=== PATIENT | female | born 1995 | race Caucasian/White ===

== ENCOUNTER → 2017-07-08 | Outpatient (CLI) | payer OTHER ==
[2016-11-21 11:04] VITALS: BMI 25.4
[~2017-07-08] MED LIST: LEVO1TAB75 PO; ONDA4TAB PO; PROM-110 PO; SULF-198 PO; [UNRECOGNIZED DRUG - CODE] MC
[2017-07-08 10:05] LABS: LDL CHOLESTEROL 108 mg/dl
== END ==
LOC: LAB 08:46
PROVIDERS: ATTEND Internal Medicine Endocrinology, Diabetes & Metabolism
DX: E10.65 Type 1 diabetes mellitus with hyperglycemia (principal)
CPT/HCPCS: 36415; 82040; 82043; 82247; 82310; 82374; 82435; 82465; 82565; 82947; 83718; 84075; 84132; 84155; 84295; 84436; 84443; 84450; 84460; 84478; 84479; 84520

== ENCOUNTER 2017-08-24 01:13 | Emergency (ER) | payer OTHER ==
[2016-11-21 11:04] VITALS: Ht 175.3 cm; Wt 62.6 kg
[~2017-08-24] VITALS: Ht 175.3 cm; Wt 62.6 kg
--- NOTE | 2017-08-24 01:15 | ER Report ---
History and Physical Time Seen By MD: 01:15 HPI/ROS CHIEF COMPLAINT: Vomiting, hyperglycemia HISTORY OF PRESENT ILLNESS: 22-year-old female, type I diabetic presents with vomiting for 12 hours. She's been able to eat anything. She is on insulin pump. She's been having low blood sugars. Patient has a history of chronic nausea and vomiting problems. Likely secondary to gastroparesis. REVIEW OF SYSTEMS: Respiratory: No cough, no dyspnea. Cardiovascular: No chest pain, no palpitations. Gastrointestinal: As above Musculoskeletal: No back pain. Allergies: Coded Allergies: No Known Drug Allergies (Verified , 08/24/17) Home Meds Active Scripts Promethazine Hcl (PROMETHAZINE HCL) 25 Mg Tablet, 25 MG PO Q4H Y for NAUSEA/ VOMITING, #20 TAB Prov:CARMEN HARRISON DO 08/24/17 Ondansetron (ZOFRAN ODT) 4 Mg Tab.rapdis, 4 MG PO every 6 hours Y for NAUSEA/ VOMITING, #15 TAB TAKE 1 TABLET BY MOUTH EVERY 12 HOURS Prov:CARMEN HARRISON DO 08/24/17 Reported Medications Citalopram Hydrobromide (CITALOPRAM HBR) 20 Mg Tablet, PO QDAY, #5 TAB 08/24/17 Levonorgestrel-Eth Estradiol (LEVORA-28) 1 Each Tablet, 1 EACH PO DAILY 05/04/16 Insulin Pump Syringe, 3 Ml (Insulin Pump [place]) 1 Each Each, 1 EACH MC, 0 Refills 06/01/11 Discontinued Scripts Ondansetron (ZOFRAN ODT) 4 Mg Tab.rapdis, 4 MG PO Q6H Y for NAUSEA/VOMITING, # 20 TAB.AVIVA 0 Refills Prov:CLARISSA GEIGER MD 06/16/17 Sulfamethoxazole/Trimet 800-160 Mg Tab (BACTRIM DS TABLET) 1 Each Tablet, 1 TAB PO Q12H, #10 TAB 0 Refills Prov:CLARISSA GEIGER MD 06/16/17 Reviewed Nurses Notes: Yes Old Medical Records Reviewed: Yes Hx Smoking: No Exposure to Second Hand Smoke?: No Hx Substance Use Disorder: No Hx Alcohol Use: No Constitutional Vital Sign - Last 24 Hours 08/24/17 08/24/17 08/24/17 08/24/17 01:21 01:30 01:31 02:00 Temp 97.8 Pulse 84 78 Resp 14 B/P (MAP) 122/87 (99) 122/87 114/73 (87) Pulse Ox 96 94 O2 Delivery Room Air 08/24/17 08/24/17 08/24/17 02:30 03:00 03:20 Pulse 68 70 Resp 14 14 B/P (MAP) 109/64 (79) 124/80 (95) 122/68 (86) Pulse Ox 97 96 O2 Delivery Room Air Room Air Physical Exam General Appearance: The patient is alert, has no immediate need for airway protection and no current signs of toxicity. Vital signs stable, afebrile, pulse ox normal HEENT: Pupils equal and round no injection. Oropharynx without redness or exudate Respiratory: Chest is non tender, lungs are clear to auscultation. Cardiac: regular rate and rhythm Gastrointestinal: Abdomen is soft, mild diffuse tenderness, no masses, bowel sounds normal. Musculoskeletal: Neck: Neck is supple and non tender. No lymphadenopathy Extremities have full range of motion and are non tender. Skin: No rashes or lesions. DIFFERENTIAL DIAGNOSIS: After history and physical exam differential diagnosis was considered for abdominal pain including but not limited to appendicitis, cholecystitis, gastroenteritis, gastroparesis, gastritis and urinary tract infection. Medical Decision Making Data Points Result Diagram: 08/24/17 0129 08/24/17 0129 Laboratory Hematology Test 08/24/17 01:19 08/24/17 01:21 08/24/17 01:29 Urine Color Yellow Urine Clarity Slightly-cloudy Urine pH 5.0 pH (4.8-9.5) Urine Specific [place] 1.030 Urine Protein Negative mg/dL (NEGATIVE) Urine Glucose (UA) Negative mg/dL (NEGATIVE) Urine Ketones Trace mg/dL (NEGATIVE) Urine Blood Negative (NEGATIVE) Urine Nitrite Negative (NEGATIVE) Urine Bilirubin Negative (NEGATIVE) Urine Urobilinogen Negative mg/dL (0.2-1.9) Urine Leukocyte Esterase Negative (NEGATIVE) Urine RBC None /HPF (0-2/HPF) Urine WBC 2 /HPF (0-5/HPF) Urine Squamous Epithelial Cells Many /LPF (</=FEW) Urine Bacteria Negative /HPF (NONE-FEW) Urine Mucus Few /HPF (NONE-FEW) Urine HCG, Qualitative Negative (NEGATIVE) Whole Blood Glucose 66 mg/DL (75-110) Red Blood Count 5.25 M/uL (4.17-5.56) Mean Corpuscular Volume 89.6 fL (80.0-96.0) Mean Corpuscular Hemoglobin 30.7 pg (26.0-33.0) Mean Corpuscular Hemoglobin Concent 34.2 g/dL (32.0-36.0) Red Cell Distribution Width 12.3 % (11.5-14.5) Mean Platelet Volume 8.6 fL (7.2-11.1) Neutrophils (%) (Auto) 71.5 % (39.4-72.5) Lymphocytes (%) (Auto) 19.4 % (17.6-49.6) Monocytes (%) (Auto) 8.4 % (4.1-12.4) Eosinophils (%) (Auto) 0.4 % (0.4-6.7) Basophils (%) (Auto) 0.3 % (0.3-1.4) Nucleated RBC Relative Count (auto) 0.0 /100WBC Neutrophils # (Auto) 8.7 K/uL (2.0-7.4) Lymphocytes # (Auto) 2.4 K/uL (1.3-3.6) Monocytes # (Auto) 1.0 K/uL (0.3-1.0) Eosinophils # (Auto) 0.1 K/uL (0.0-0.5) Basophils # (Auto) 0.0 K/uL (0.0-0.1) Nucleated RBC Absolute Count (auto) 0.00 K/uL Sodium Level 139 mmol/L (137-145) Potassium Level 3.5 mmol/L (3.5-5.0) Chloride Level 104 mmol/L (98-107) Carbon Dioxide Level 21 mmol/L (22-31) Blood Urea Nitrogen 10 mg/dl (7-18) Creatinine 0.80 mg/dl (0.52-1.04) Glomerular Filtration Rate Calc > 60.0 Random Glucose 61 mg/dl (75-110) Calcium Level 9.2 mg/dl (8.4-10.2) Total Bilirubin 0.4 mg/dl (0.2-1.3) Aspartate Amino Transf (AST/SGOT) 23 U/L (0-35) Alanine Aminotransferase (ALT/SGPT) 27 U/L (0-56) Alkaline Phosphatase 54 U/L (0-126) Total Protein 7.8 gm/dl (6.3-8.2) Albumin 4.3 g/dl (3.5-5.0) Amylase Level 91 U/L (0-110) Lipase 79 U/L (23-300) Chemistry Test 08/24/17 01:19 08/24/17 01:21 08/24/17 01:29 Urine Color Yellow Urine Clarity Slightly-cloudy Urine pH 5.0 pH (4.8-9.5) Urine Specific [place] 1.030 Urine Protein Negative mg/dL (NEGATIVE) Urine Glucose (UA) Negative mg/dL (NEGATIVE) Urine Ketones Trace mg/dL (NEGATIVE) Urine Blood Negative (NEGATIVE) Urine Nitrite Negative (NEGATIVE) Urine Bilirubin Negative (NEGATIVE) Urine Urobilinogen Negative mg/dL (0.2-1.9) Urine Leukocyte Esterase Negative (NEGATIVE) Urine RBC None /HPF (0-2/HPF) Urine WBC 2 /HPF (0-5/HPF) Urine Squamous Epithelial Cells Many /LPF (</=FEW) Urine Bacteria Negative /HPF (NONE-FEW) Urine Mucus Few /HPF (NONE-FEW) Urine HCG, Qualitative Negative (NEGATIVE) Whole Blood Glucose 66 mg/DL (75-110) White Blood Count 12.2 k/uL (4.5-11.0) Red Blood Count 5.25 M/uL (4.17-5.56) Hemoglobin 16.1 g/dL (12.0-16.0) Hematocrit 47.0 % (34.0-47.0) Mean Corpuscular Volume 89.6 fL (80.0-96.0) Mean Corpuscular Hemoglobin 30.7 pg (26.0-33.0) Mean Corpuscular Hemoglobin Concent 34.2 g/dL (32.0-36.0) Red Cell Distribution Width 12.3 % (11.5-14.5) Platelet Count 298 K/uL (150-450) Mean Platelet Volume 8.6 fL (7.2-11.1) Neutrophils (%) (Auto) 71.5 % (39.4-72.5) Lymphocytes (%) (Auto) 19.4 % (17.6-49.6) Monocytes (%) (Auto) 8.4 % (4.1-12.4) Eosinophils (%) (Auto) 0.4 % (0.4-6.7) Basophils (%) (Auto) 0.3 % (0.3-1.4) Nucleated RBC Relative Count (auto) 0.0 /100WBC Neutrophils # (Auto) 8.7 K/uL (2.0-7.4) Lymphocytes # (Auto) 2.4 K/uL (1.3-3.6) Monocytes # (Auto) 1.0 K/uL (0.3-1.0) Eosinophils # (Auto) 0.1 K/uL (0.0-0.5) Basophils # (Auto) 0.0 K/uL (0.0-0.1) Nucleated RBC Absolute Count (auto) 0.00 K/uL Glomerular Filtration Rate Calc > 60.0 Calcium Level 9.2 mg/dl (8.4-10.2) Total Bilirubin 0.4 mg/dl (0.2-1.3) Aspartate Amino Transf (AST/SGOT) 23 U/L (0-35) Alanine Aminotransferase (ALT/SGPT) 27 U/L (0-56) Alkaline Phosphatase 54 U/L (0-126) Total Protein 7.8 gm/dl (6.3-8.2) Albumin 4.3 g/dl (3.5-5.0) Amylase Level 91 U/L (0-110) Lipase 79 U/L (23-300) Urinalysis Test 08/24/17 01:19 Urine Color Yellow Urine Clarity Slightly-cloudy Urine pH 5.0 pH (4.8-9.5) Urine Specific [place] 1.030 Urine Protein Negative mg/dL (NEGATIVE) Urine Glucose (UA) Negative mg/dL (NEGATIVE) Urine Ketones Trace mg/dL (NEGATIVE) Urine Blood Negative (NEGATIVE) Urine Nitrite Negative (NEGATIVE) Urine Bilirubin Negative (NEGATIVE) Urine Urobilinogen Negative mg/dL (0.2-1.9) Urine Leukocyte Esterase Negative (NEGATIVE) Urine RBC None /HPF (0-2/HPF) Urine WBC 2 /HPF (0-5/HPF) Urine Squamous Epithelial Cells Many /LPF (</=FEW) Urine Bacteria Negative /HPF (NONE-FEW) Urine Mucus Few /HPF (NONE-FEW) Urine HCG, Qualitative Negative (NEGATIVE) ED Course/Re-evaluation Clinical Indication for ER IV: Hydration, IV Access ED Course Patient was admitted to an examination room. H&P was done. The differential diagnoses was considered. On clinical examination. Patient is a benign nonsurgical abdomen. She is treated with IV fluid., Zofran 8 mg, 1 L normal saline, Phenergan 12.5 mg. She is given dextrose 25 g IV. She feels much better. Glucose for her continuous monitoring is 126. Patient is tolerating by mouth apple juice. Patient be discharged home with oral Zofran and Phenergan. Decision to Disposition Date: Aug 24, 2017 Decision to Disposition Time: 02:02 Depart Departure Latest Vital Signs Vital Signs Date Time Temp Pulse Resp B/P (MAP) Pulse Ox O2 Delivery O2 Flow Rate FiO2 08/24/17 03:20 70 14 122/68 (86) 96 Room Air 08/24/17 01:31 97.8 Impression: Primary Impression: Nausea & vomiting Additional Impressions: Type 1 diabetes mellitus Hypoglycemia Condition: Improved Disposition: HOME OR SELF-CARE Referrals: ANNE GARCIA DO (PCP) New Scripts Promethazine Hcl (PROMETHAZINE HCL) 25 Mg Tablet 25 MG PO Q4H Y for NAUSEA/VOMITING, #20 TAB Prov: CARMEN HARRISON DO 08/24/17 Ondansetron (ZOFRAN ODT) 4 Mg Tab.rapdis 4 MG PO every 6 hours Y for NAUSEA/VOMITING, #15 TAB TAKE 1 TABLET BY MOUTH EVERY 12 HOURS Prov: CARMEN HARRISON DO 08/24/17 Patient Instructions: Acute Nausea and Vomiting (ED) Problem Qualifiers Primary Impression: Nausea & vomiting Vomiting type: unspecified Vomiting Intractability: intractable Qualified Codes: R11.2 - Nausea with vomiting, unspecified Additional Impressions: Type 1 diabetes mellitus Diabetes mellitus complication status: without complication Qualified Codes: E10.9 - Type 1 diabetes mellitus without complications CARMEN HARRISON DO Aug 24, 2017 01:15
[2017-08-24] MEDS ORDERED: NS(*) 0.9% 1000 ML BAG 1,000 ML IV ONE (01:22)
[2017-08-24] MEDS ORDERED: CITA-139 PO (01:23)
[2017-08-24] MEDS ORDERED: ONDANSETRON 4 MG/2 ML VIAL ONE (01:24)
[2017-08-24] MEDS ORDERED: ONDANSETRON 4 MG/2 ML VIAL IVP ONE (01:25)
[2017-08-24 01:48] LABS: PLATELET COUNT, AUTOMATED 298 K/uL (150-450)
[2017-08-24] MEDS ORDERED: DEXTROSE 50% 50 ML SYR IVP ONE (02:05)
[2017-08-24] MEDS ORDERED: PROMETHAZINE 25 MG/ML 1 ML AMP IVP ONE (02:25)
[2017-08-24] MEDS ORDERED: PROM-110 PO (02:51)
[2017-08-24] MEDS ORDERED: ONDA4TAB PO (02:51)
[2017-08-24] MEDS ORDERED: PROMETHAZINE HCL 25 MG TAB TH 2 TAB/BOTTLE PO ONE (03:15)
[2017-08-24] MEDS ORDERED: ONDANSETRON 4 MG ODT TH SL ONE (03:15)
[2017-08-24 03:20] VITALS: BP 122/68
== END 2017-08-24 03:33 | disposition home or self-care (01) ==
LOC: ER 01:14
DX: E10.649 Type 1 diabetes mellitus with hypoglycemia without coma (principal); R11.2 Nausea with vomiting, unspecified
CPT/HCPCS: 36416; 81001; 81025; 82150; 82948; 83690; 85025; 96374; 96375; 99284; J2405; J2550; J7030; S0119; 82040; 82247; 82310; 82374; 82435; 82565; 82947; 84075; 84132; 84155; 84295; 84450; 84460; 84520

== ENCOUNTER 2017-08-25 21:07 | Emergency (ER) | payer OTHER ==
[2016-11-21 11:04] VITALS: Wt 62.6 kg
[~2017-08-25 21:07] MED LIST changes: +CITA-139 PO
--- NOTE | 2017-08-25 21:18 | ER Report ---
History and Physical Time Seen By MD: 21:17 HPI/ROS CHIEF COMPLAINT: Vomiting HISTORY OF PRESENT ILLNESS: 22-year-old female, type I diabetic presents to the ER with continued vomiting today. She was seen here 3 days ago for vomiting. Patient has chronic nausea she gets waves of nausea and sometimes it develops and vomiting, which is uncontrollable. She's been admitted twice to the hospital before for intractable vomiting. She had gastric emptying studies, which showed normal function a year ago. She reports no fevers, no chills, no dysuria. Patient notes bandlike pain across her upper abdomen. REVIEW OF SYSTEMS: Respiratory: No cough, no dyspnea. Cardiovascular: No chest pain, no palpitations. Gastrointestinal: As above Musculoskeletal: No back pain. Allergies: Coded Allergies: No Known Drug Allergies (Verified , 08/25/17) Home Meds Active Scripts Metoclopramide Hcl (REGLAN) 10 Mg Tablet, 10 MG PO ACHS Y for NAUSEA/VOMITING, # 30 Prov:CHRISTYCARMEN Jimenez DO 08/26/17 Scopolamine (Scopolamine) 1 Mg/3 Day Patch.td.3, 1 PATCH.72H TOP Q3D Y for NAUSEA/VOMITING, #10 Prov:CARMEN HARRISON Jimenez DO 08/26/17 Promethazine Hcl (PROMETHAZINE HCL) 25 Mg Tablet, 25 MG PO Q4H Y for NAUSEA/ VOMITING, #20 TAB Prov:CARMEN HARRISON Jimenez DO 08/24/17 Ondansetron (ZOFRAN ODT) 4 Mg Tab.rapdis, 4 MG PO every 6 hours Y for NAUSEA/ VOMITING, #15 TAB TAKE 1 TABLET BY MOUTH EVERY 12 HOURS Prov:CARMEN HARRISON Jimenez DO 08/24/17 Reported Medications Citalopram Hydrobromide (CITALOPRAM HBR) 20 Mg Tablet, PO QDAY, #5 TAB 08/24/17 Levonorgestrel-Eth Estradiol (LEVORA-28) 1 Each Tablet, 1 EACH PO DAILY 05/04/16 Insulin Pump Syringe, 3 Ml (Insulin Pump [place]) 1 Each Each, 1 EACH MC, 0 Refills 06/01/11 Discontinued Scripts Ondansetron (ZOFRAN ODT) 4 Mg Tab.rapdis, 4 MG PO Q6H Y for NAUSEA/VOMITING, # 20 TAB.AVIVA 0 Refills Prov:CLARISSA GEIGER MD 06/16/17 Sulfamethoxazole/Trimet 800-160 Mg Tab (BACTRIM DS TABLET) 1 Each Tablet, 1 TAB PO Q12H, #10 TAB 0 Refills Prov:JUANJOCLARISSA Phil LINARES 06/16/17 Past Medical/Surgical History Type I diabetes, chronic nausea no history of intractable vomiting Reviewed Nurses Notes: Yes Old Medical Records Reviewed: Yes Hx Smoking: No Exposure to Second Hand Smoke?: No Hx Substance Use Disorder: No Hx Alcohol Use: No Constitutional Vital Sign - Last 24 Hours 08/25/17 08/25/17 08/25/17 08/25/17 21:13 21:19 21:30 21:37 Temp 98.8 Pulse 84 83 Resp 18 B/P (MAP) 129/83 (98) 129/83 106/71 (83) Pulse Ox 94 97 O2 Delivery Room Air 08/25/17 08/25/17 08/25/17 08/25/17 22:00 22:07 22:30 22:37 Pulse 168 84 B/P (MAP) 117/65 (82) 122/72 (89) Pulse Ox 96 93 08/25/17 08/25/17 08/25/17 08/25/17 22:42 22:57 23:00 23:12 Pulse 84 84 82 B/P (MAP) 108/67 (81) Pulse Ox 94 95 96 08/25/17 08/25/17 08/25/17 08/25/17 23:27 23:30 23:42 23:57 Pulse 87 86 87 B/P (MAP) 111/71 (84) Pulse Ox 95 97 98 08/26/17 08/26/17 08/26/17 08/26/17 00:00 00:05 00:20 00:30 Pulse 88 86 B/P (MAP) 114/74 (87) 110/69 (83) Pulse Ox 95 97 08/26/17 08/26/17 00:50 01:00 Pulse 86 B/P (MAP) 109/64 (79) Pulse Ox 94 Physical Exam Vital signs stable, afebrile, pulse ox normal General Appearance: The patient is alert, has no immediate need for airway protection and no current signs of toxicity. Slightly pale appearing, skin warm and dry HEENT: Pupils equal and round no injection. Oropharynx without redness, mucous. Membranes are moist Respiratory: Chest is non tender, lungs are clear to auscultation. Cardiac: regular rate and rhythm Gastrointestinal: Abdomen is soft, mild bilateral upper quadrant tenderness without rebound or guarding, no masses, bowel sounds normal. Musculoskeletal: Neck: Neck is supple and non tender. No lymphadenopathy Extremities have full range of motion and are non tender. Skin: No rashes or lesions. DIFFERENTIAL DIAGNOSIS: After history and physical exam differential diagnosis was considered for abdominal pain including but not limited to appendicitis, cholecystitis, diabetic ketoacidosis, gastroparesis, gastritis and urinary tract infection. Medical Decision Making Data Points Result Diagram: 08/25/17213408/25/172134 Laboratory Hematology Test 08/25/17 21:17 08/25/17 21:35 Urine Color Yellow Urine Clarity Clear Urine pH 6.0 pH (4.8-9.5) Urine Specific [place] 1.024 Urine Protein Negative mg/dL (NEGATIVE) Urine Glucose (UA) Negative mg/dL (NEGATIVE) Urine Ketones Negative mg/dL (NEGATIVE) Urine Blood Small (NEGATIVE) Urine Nitrite Negative (NEGATIVE) Urine Bilirubin Negative (NEGATIVE) Urine Urobilinogen 2.0 mg/dL (0.2-1.9) Urine Leukocyte Esterase Negative (NEGATIVE) Urine RBC <1 /HPF (0-2/HPF) Urine WBC 1 /HPF (0-5/HPF) Urine Squamous Epithelial Cells Many /LPF (</=FEW) Urine Renal Epithelial Cells Few /LPF (NONE-FEW) Urine Bacteria Negative /HPF (NONE-FEW) Urine Mucus Few /HPF (NONE-FEW) Urine HCG, Qualitative Negative (NEGATIVE) Red Blood Count 4.53 M/uL (4.17-5.56) Mean Corpuscular Volume 90.8 fL (80.0-96.0) Mean Corpuscular Hemoglobin 31.1 pg (26.0-33.0) Mean Corpuscular Hemoglobin Concent 34.2 g/dL (32.0-36.0) Red Cell Distribution Width 12.4 % (11.5-14.5) Mean Platelet Volume 8.7 fL (7.2-11.1) Neutrophils (%) (Auto) 49.4 % (39.4-72.5) Lymphocytes (%) (Auto) 33.7 % (17.6-49.6) Monocytes (%) (Auto) 14.2 % (4.1-12.4) Eosinophils (%) (Auto) 2.4 % (0.4-6.7) Basophils (%) (Auto) 0.3 % (0.3-1.4) Nucleated RBC Relative Count (auto) 0.0 /100WBC Neutrophils # (Auto) 3.3 K/uL (2.0-7.4) Lymphocytes # (Auto) 2.3 K/uL (1.3-3.6) Monocytes # (Auto) 1.0 K/uL (0.3-1.0) Eosinophils # (Auto) 0.2 K/uL (0.0-0.5) Basophils # (Auto) 0.0 K/uL (0.0-0.1) Nucleated RBC Absolute Count (auto) 0.00 K/uL Sodium Level 139 mmol/L (137-145) Potassium Level 3.9 mmol/L (3.5-5.0) Chloride Level 105 mmol/L (98-107) Carbon Dioxide Level 22 mmol/L (22-31) Blood Urea Nitrogen 6 mg/dl (7-18) Creatinine 0.80 mg/dl (0.52-1.04) Glomerular Filtration Rate Calc > 60.0 Random Glucose 68 mg/dl (75-110) Calcium Level 7.9 mg/dl (8.4-10.2) Total Bilirubin 0.3 mg/dl (0.2-1.3) Aspartate Amino Transf (AST/SGOT) 17 U/L (0-35) Alanine Aminotransferase (ALT/SGPT) 28 U/L (0-56) Alkaline Phosphatase 59 U/L (0-126) Total Protein 6.7 gm/dl (6.3-8.2) Albumin 3.5 g/dl (3.5-5.0) Amylase Level 70 U/L (0-110) Lipase 59 U/L (23-300) Chemistry Test 08/25/17 21:17 08/25/17 21:35 Urine Color Yellow Urine Clarity Clear Urine pH 6.0 pH (4.8-9.5) Urine Specific [place] 1.024 Urine Protein Negative mg/dL (NEGATIVE) Urine Glucose (UA) Negative mg/dL (NEGATIVE) Urine Ketones Negative mg/dL (NEGATIVE) Urine Blood Small (NEGATIVE) Urine Nitrite Negative (NEGATIVE) Urine Bilirubin Negative (NEGATIVE) Urine Urobilinogen 2.0 mg/dL (0.2-1.9) Urine Leukocyte Esterase Negative (NEGATIVE) Urine RBC <1 /HPF (0-2/HPF) Urine WBC 1 /HPF (0-5/HPF) Urine Squamous Epithelial Cells Many /LPF (</=FEW) Urine Renal Epithelial Cells Few /LPF (NONE-FEW) Urine Bacteria Negative /HPF (NONE-FEW) Urine Mucus Few /HPF (NONE-FEW) Urine HCG, Qualitative Negative (NEGATIVE) White Blood Count 6.8 k/uL (4.5-11.0) Red Blood Count 4.53 M/uL (4.17-5.56) Hemoglobin 14.1 g/dL (12.0-16.0) Hematocrit 41.2 % (34.0-47.0) Mean Corpuscular Volume 90.8 fL (80.0-96.0) Mean Corpuscular Hemoglobin 31.1 pg (26.0-33.0) Mean Corpuscular Hemoglobin Concent 34.2 g/dL (32.0-36.0) Red Cell Distribution Width 12.4 % (11.5-14.5) Platelet Count 270 K/uL (150-450) Mean Platelet Volume 8.7 fL (7.2-11.1) Neutrophils (%) (Auto) 49.4 % (39.4-72.5) Lymphocytes (%) (Auto) 33.7 % (17.6-49.6) Monocytes (%) (Auto) 14.2 % (4.1-12.4) Eosinophils (%) (Auto) 2.4 % (0.4-6.7) Basophils (%) (Auto) 0.3 % (0.3-1.4) Nucleated RBC Relative Count (auto) 0.0 /100WBC Neutrophils # (Auto) 3.3 K/uL (2.0-7.4) Lymphocytes # (Auto) 2.3 K/uL (1.3-3.6) Monocytes # (Auto) 1.0 K/uL (0.3-1.0) Eosinophils # (Auto) 0.2 K/uL (0.0-0.5) Basophils # (Auto) 0.0 K/uL (0.0-0.1) Nucleated RBC Absolute Count (auto) 0.00 K/uL Glomerular Filtration Rate Calc > 60.0 Calcium Level 7.9 mg/dl (8.4-10.2) Total Bilirubin 0.3 mg/dl (0.2-1.3) Aspartate Amino Transf (AST/SGOT) 17 U/L (0-35) Alanine Aminotransferase (ALT/SGPT) 28 U/L (0-56) Alkaline Phosphatase 59 U/L (0-126) Total Protein 6.7 gm/dl (6.3-8.2) Albumin 3.5 g/dl (3.5-5.0) Amylase Level 70 U/L (0-110) Lipase 59 U/L (23-300) Urinalysis Test 08/25/17 21:17 Urine Color Yellow Urine Clarity Clear Urine pH 6.0 pH (4.8-9.5) Urine Specific [place] 1.024 Urine Protein Negative mg/dL (NEGATIVE) Urine Glucose (UA) Negative mg/dL (NEGATIVE) Urine Ketones Negative mg/dL (NEGATIVE) Urine Blood Small (NEGATIVE) Urine Nitrite Negative (NEGATIVE) Urine Bilirubin Negative (NEGATIVE) Urine Urobilinogen 2.0 mg/dL (0.2-1.9) Urine Leukocyte Esterase Negative (NEGATIVE) Urine RBC <1 /HPF (0-2/HPF) Urine WBC 1 /HPF (0-5/HPF) Urine Squamous Epithelial Cells Many /LPF (</=FEW) Urine Renal Epithelial Cells Few /LPF (NONE-FEW) Urine Bacteria Negative /HPF (NONE-FEW) Urine Mucus Few /HPF (NONE-FEW) Urine HCG, Qualitative Negative (NEGATIVE) ED Course/Re-evaluation Clinical Indication for ER IV: Hydration, IV Access ED Course Patient was admitted to an examination room. H&P was done. The differential diagnoses was considered. On clinical examination. Patient has benign nonsurgical abdomen. She does have tenderness in the upper quadrants. She is aggressively hydrated with IV fluids. She's given Zofran and Phenergan. She is given fentanyl for pain. After 2nd liter of fluid. Patient feels much better. She is given apple juice and is able to tolerate apple juice without emesis. I had a prolonged discussion with her and her significant other regarding admission. Patient would prefer not to be admitted if possible. We' ll do a trial of Reglan. Patient's also been trying scopolamine patches without success. 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 Decision to Disposition Date: Aug 26, 2017 Decision to Disposition Time: 00:43 Depart Departure Latest Vital Signs Vital Signs Date Time Temp Pulse Resp B/P (MAP) Pulse Ox O2 Delivery O2 Flow Rate FiO2 08/26/17 01:00 109/64 (79) 08/26/17 00:50 86 94 08/25/17 21:19 98.8 18 Room Air Impression: Primary Impression: Chronic nausea Additional Impression: Type 1 diabetes mellitus Condition: Improved Disposition: HOME OR SELF-CARE Referrals: ANNE GARCIA DO (PCP) New Scripts Metoclopramide Hcl (REGLAN) 10 Mg Tablet 10 MG PO ACHS Y for NAUSEA/VOMITING, #30 Prov: CARMEN HARRISON DO 08/26/17 Scopolamine (Scopolamine) 1 Mg/3 Day Patch.td.3 1 PATCH.72H TOP Q3D Y for NAUSEA/VOMITING, #10 Prov: CARMEN HARRISON DO 08/26/17 Patient Instructions: Diabetic Hyperglycemia (ED) Additional Instructions: Follow-up with her primary care doctor within 5 days Problem Qualifiers Additional Impression: Type 1 diabetes mellitus Diabetes mellitus complication status: without complication Qualified Codes: E10.9 - Type 1 diabetes mellitus without complications CARMEN HARRISON DO Aug 25, 2017 21:18
[2017-08-25] MEDS ORDERED: NS(*) 0.9% 1000 ML BAG 1,000 ML IV ONE (21:21)
[2017-08-25] MEDS ORDERED: PROMETHAZINE 25 MG/ML 1 ML AMP IVP ONE (21:25)
[2017-08-25] MEDS ORDERED: ONDANSETRON 4 MG/2 ML VIAL IVP ONE (21:25)
[2017-08-25 21:49] LABS: PLATELET COUNT, AUTOMATED 270 K/uL (150-450)
[2017-08-25] MEDS ORDERED: DEXTROSE 50% 50 ML SYR IVP ONE (22:15)
[2017-08-25] MEDS ORDERED: fentaNYL CITR 100 MCG/2 ML AMP IVP ONE (22:30)
[2017-08-25] MEDS ORDERED: LR(*) 1000 ML BAG 1,000 ML IV ONE (23:30)
[2017-08-26] MEDS ORDERED: SCOP1PAT16 TOP (00:45)
[2017-08-26] MEDS ORDERED: SCOPOLAMINE 1.5 MG PATCH TD ONE (00:45)
[2017-08-26] MEDS ORDERED: METO-734 PO (00:59)
[2017-08-26 01:00] VITALS: BP 109/64
[2017-08-26] MEDS ORDERED: METOCLOPRAMIDE 10 MG TAB PO ONE (01:00)
[2017-08-26] MEDS ORDERED: oxyCODONE/ACETAMIN 5/325MG TH 2 TAB/BOTTLE PO ONE (01:00)
[2017-08-26] MEDS ORDERED: ACET/HYDROC 5/325MG TH ER ONLY 2 TAB/BOTTLE PO ONE (01:10)
== END 2017-08-26 01:12 | disposition home or self-care (01) ==
LOC: ER 21:19
DX: E10.9 Type 1 diabetes mellitus without complications (principal); R11.2 Nausea with vomiting, unspecified
CPT/HCPCS: 81001; 81025; 82150; 83690; 85025; 96361; 96374; 96375; 99284; J2405; J2550; J3010; J7030; J7120; J8597; 82040; 82247; 82310; 82374; 82435; 82565; 82947; 84075; 84132; 84155; 84295; 84450; 84460; 84520

== ENCOUNTER 2017-08-26 18:46 | Observation (INO) | payer OTHER ==
[2016-11-21 11:04] VITALS: Wt 62.6 kg
[~2017-08-26 18:46] MED LIST changes: +METO-734 PO; +SCOP1PAT16 TOP
--- NOTE | 2017-08-26 18:50 | ER Report ---
History and Physical Time Seen By MD: 18:49 HPI/ROS CHIEF COMPLAINT: Vomiting HISTORY OF PRESENT ILLNESS: 22-year-old female returns to the ER after being seen last evening for vomiting. She is a type I diabetic. She has a history of chronic nausea and vomiting. She's had 2 previous admissions here at the hospital in the past. She was seen on 08/24/17 and 08/25/17 with vomiting. She was discharged home last night with Reglan and scopolamine to add to her treatment regime. She lasted until about 4 AM and began vomiting again. She's been vomiting for the last 12-14 hours. She's been unable to keep anything down. She notes bilateral upper quadrant abdominal pain without radiation. She denies fever, chills or dysuria. REVIEW OF SYSTEMS: Respiratory: No cough, no dyspnea. Cardiovascular: No chest pain, no palpitations. Gastrointestinal: As above Musculoskeletal: No back pain. Allergies: Coded Allergies: No Known Drug Allergies (Verified , 08/25/17) Home Meds Active Scripts Scopolamine (Scopolamine) 1 Mg/3 Day Patch.td.3, 1 PATCH.72H TOP Q3D Y for NAUSEA/VOMITING, #10 Prov:CARMEN HARRISON Jimenez DO 08/26/17 Promethazine Hcl (PROMETHAZINE HCL) 25 Mg Tablet, 25 MG PO Q4H Y for NAUSEA/ VOMITING, #20 TAB Prov:CARMEN HARRISON Jimenez DO 08/24/17 Ondansetron (ZOFRAN ODT) 4 Mg Tab.rapdis, 4 MG PO every 6 hours Y for NAUSEA/ VOMITING, #15 TAB TAKE 1 TABLET BY MOUTH EVERY 12 HOURS Prov:CARMEN HARRISON Jimenez DO 08/24/17 Reported Medications Citalopram Hydrobromide (CITALOPRAM HBR) 20 Mg Tablet, PO QDAY, #5 TAB 08/24/17 Levonorgestrel-Eth Estradiol (LEVORA-28) 1 Each Tablet, 1 EACH PO DAILY 05/04/16 Insulin Pump Syringe, 3 Ml (Insulin Pump M[place]) 1 Each Each, 1 EACH MC, 0 Refills 06/01/11 Discontinued Scripts Metoclopramide Hcl (REGLAN) 10 Mg Tablet, 10 MG PO ACHS Y for NAUSEA/VOMITING, # 30 Prov:CARMEN HARRISON Jimenez DO 08/26/17 Ondansetron (ZOFRAN ODT) 4 Mg Tab.rapdis, 4 MG PO Q6H Y for NAUSEA/VOMITING, # 20 TAB.AVIVA 0 Refills Prov:CLARISSA GEIGER MD 06/16/17 Sulfamethoxazole/Trimet 800-160 Mg Tab (BACTRIM DS TABLET) 1 Each Tablet, 1 TAB PO Q12H, #10 TAB 0 Refills Prov:CLARISSA GEIGER MD 06/16/17 Past Medical/Surgical History Type I diabetes, history of chronic intractable vomiting and nausea Reviewed Nurses Notes: Yes Old Medical Records Reviewed: Yes Hx Smoking: No Exposure to Second Hand Smoke?: No Hx Substance Use Disorder: No Hx Alcohol Use: No Constitutional Vital Sign - Last 24 Hours 08/26/17 08/26/17 08/26/17 08/26/17 18:54 19:00 19:01 19:16 Temp 98.7 Pulse 110 103 102 Resp 18 B/P (MAP) 122/73 (89) 122/73 Pulse Ox 94 93 93 O2 Delivery Room Air 08/26/17 08/26/17 08/26/17 08/26/17 19:31 19:46 20:01 20:16 Pulse 108 ??? 98 94 Resp 25 17 26 Pulse Ox 96 96 98 08/26/17 08/26/17 08/26/17 08/26/17 20:24 20:26 20:31 20:46 Pulse 93 96 Resp 19 23 B/P (MAP) 89/68 (75) 114/70 (85) Pulse Ox 96 95 08/26/17 08/26/17 21:00 21:01 Pulse 92 Resp 28 B/P (MAP) 106/71 (83) Pulse Ox 95 Physical Exam General Appearance: The patient is alert, has no immediate need for airway protection and no current signs of toxicity. Vital signs stable, afebrile, pulse ox normal HEENT: Pupils equal and round no injection. Oropharynx without redness or exudate, mucous numbers are moist Respiratory: Chest is non tender, lungs are clear to auscultation. Cardiac: regular rate and rhythm Gastrointestinal: Abdomen is soft. Mild bilateral upper quadrant tenderness, no rebound or guarding, no masses, bowel sounds normal. Musculoskeletal: Neck: Neck is supple and non tender. No lymphadenopathy Extremities have full range of motion and are non tender. Skin: No rashes or lesions. DIFFERENTIAL DIAGNOSIS: After history and physical exam differential diagnosis was considered for abdominal pain including but not limited to appendicitis, cholecystitis, gastritis, DKA, gastroenteritis, food poisoning, viral syndrome and urinary tract infection. Medical Decision Making Data Points Result Diagram: 08/26/17190808/26/171908 Laboratory Hematology Test 08/26/17 19:09 Red Blood Count 4.46 M/uL (4.17-5.56) Mean Corpuscular Volume 90.1 fL (80.0-96.0) Mean Corpuscular Hemoglobin 31.2 pg (26.0-33.0) Mean Corpuscular Hemoglobin Concent 34.7 g/dL (32.0-36.0) Red Cell Distribution Width 12.3 % (11.5-14.5) Mean Platelet Volume 8.7 fL (7.2-11.1) Neutrophils (%) (Auto) 54.1 % (39.4-72.5) Lymphocytes (%) (Auto) 25.6 % (17.6-49.6) Monocytes (%) (Auto) 18.3 % (4.1-12.4) Eosinophils (%) (Auto) 1.9 % (0.4-6.7) Basophils (%) (Auto) 0.1 % (0.3-1.4) Nucleated RBC Relative Count (auto) 0.0 /100WBC Neutrophils # (Auto) 3.2 K/uL (2.0-7.4) Lymphocytes # (Auto) 1.5 K/uL (1.3-3.6) Monocytes # (Auto) 1.1 K/uL (0.3-1.0) Eosinophils # (Auto) 0.1 K/uL (0.0-0.5) Basophils # (Auto) 0.0 K/uL (0.0-0.1) Nucleated RBC Absolute Count (auto) 0.00 K/uL Sodium Level 136 mmol/L (137-145) Potassium Level 4.0 mmol/L (3.5-5.0) Chloride Level 108 mmol/L (98-107) Carbon Dioxide Level 21 mmol/L (22-31) Blood Urea Nitrogen 3 mg/dl (7-18) Creatinine 0.80 mg/dl (0.52-1.04) Glomerular Filtration Rate Calc > 60.0 Random Glucose 148 mg/dl (75-110) Calcium Level 7.9 mg/dl (8.4-10.2) Total Bilirubin 0.5 mg/dl (0.2-1.3) Aspartate Amino Transf (AST/SGOT) 15 U/L (0-35) Alanine Aminotransferase (ALT/SGPT) 26 U/L (0-56) Alkaline Phosphatase 68 U/L (0-126) Total Protein 6.3 gm/dl (6.3-8.2) Albumin 3.2 g/dl (3.5-5.0) Amylase Level 53 U/L (0-110) Lipase 30 U/L (23-300) Chemistry Test 08/26/17 19:09 White Blood Count 5.9 k/uL (4.5-11.0) Red Blood Count 4.46 M/uL (4.17-5.56) Hemoglobin 13.9 g/dL (12.0-16.0) Hematocrit 40.2 % (34.0-47.0) Mean Corpuscular Volume 90.1 fL (80.0-96.0) Mean Corpuscular Hemoglobin 31.2 pg (26.0-33.0) Mean Corpuscular Hemoglobin Concent 34.7 g/dL (32.0-36.0) Red Cell Distribution Width 12.3 % (11.5-14.5) Platelet Count 238 K/uL (150-450) Mean Platelet Volume 8.7 fL (7.2-11.1) Neutrophils (%) (Auto) 54.1 % (39.4-72.5) Lymphocytes (%) (Auto) 25.6 % (17.6-49.6) Monocytes (%) (Auto) 18.3 % (4.1-12.4) Eosinophils (%) (Auto) 1.9 % (0.4-6.7) Basophils (%) (Auto) 0.1 % (0.3-1.4) Nucleated RBC Relative Count (auto) 0.0 /100WBC Neutrophils # (Auto) 3.2 K/uL (2.0-7.4) Lymphocytes # (Auto) 1.5 K/uL (1.3-3.6) Monocytes # (Auto) 1.1 K/uL (0.3-1.0) Eosinophils # (Auto) 0.1 K/uL (0.0-0.5) Basophils # (Auto) 0.0 K/uL (0.0-0.1) Nucleated RBC Absolute Count (auto) 0.00 K/uL Glomerular Filtration Rate Calc > 60.0 Calcium Level 7.9 mg/dl (8.4-10.2) Total Bilirubin 0.5 mg/dl (0.2-1.3) Aspartate Amino Transf (AST/SGOT) 15 U/L (0-35) Alanine Aminotransferase (ALT/SGPT) 26 U/L (0-56) Alkaline Phosphatase 68 U/L (0-126) Total Protein 6.3 gm/dl (6.3-8.2) Albumin 3.2 g/dl (3.5-5.0) Amylase Level 53 U/L (0-110) Lipase 30 U/L (23-300) EKG/Imaging Imaging Results: CT scan of the abdomen and pelvis with IV contrast was obtained. The results of the study are CT of the abdomen and pelvis with contrast: Indication: Upper abdominal pain and vomiting. Technique: Helical CT was performed through the abdomen and pelvis following IV contrast enhancement with 75 cc of Isovue-370. Multiplanar reconstructions are reviewed. One of the following dose optimization techniques was utilized in the performance of this exam: Automated exposure control; adjustment of the mA and/ or kV according to the patient's size; or use of an iterative reconstruction technique. Specific details can be referenced in the facility's radiology CT exam operational policy. Comparison: 05/04/2016 Lower lung cottrell: No focal parenchymal or pleural abnormality is identified. Liver: Normal in size, shape, and density. There is uniform enhancement of the venous structures. Gallbladder/biliary tree: The gallbladder is normal in size and homogeneous in density. The bile ducts are normal in caliber. Pancreas: Normal in size, shape, and density. There are no signs of acute inflammation or fluid. Spleen: Normal in size, shape, and density. Adrenal glands: Within normal limits. Kidneys/urinary bladder: The kidneys are normal in size, shape, and density. There are no signs of obstruction. The urinary bladder is unremarkable, as visualized. Intestinal structures: There is a moderate amount of stool in the colon. There are no signs of obstruction or focal inflammatory changes. The appendix is unremarkable, as visualized. Pelvis: The uterus and adnexal structures are unremarkable, as visualized. Aorta and vascular structures: Within normal limits. Ascites or fluid collections: There is trace free fluid in the cul-de-sac. No circumscribed fluid collection is identified. Skeletal structures: Intact and unremarkable. Impression: No acute process is identified in the abdomen or pelvis. The study was read by the radiologist. I viewed the images myself on the PACS system. ED Course/Re-evaluation Clinical Indication for ER IV: Hydration, IV Access ED Course Patient was admitted to an examination room. H&P was done. The dental diagnoses was considered. On clinical examination. Patient has mild bilateral upper quadrant tenderness. This is the patient's 3rd ER visit in the last 5 days. She is failing outpatient therapy with antibiotics. She has no history of gastroparesis. Diagnostic studies are unremarkable. A CT scan performed tonight shows no occult pathology. Her case is discussed with Dr. Mcmillan hospitalist on-call, who accepts the patient for admission. 08/26/2017 8:20:46 pm case discussed with Dr. Mcmillan regarding possible admission for intractable vomiting. Decision to Disposition Date: Aug 26, 2017 Decision to Disposition Time: 20:10 Depart Departure Latest Vital Signs Vital Signs Date Time Temp Pulse Resp B/P (MAP) Pulse Ox O2 Delivery O2 Flow Rate FiO2 08/26/17 21:01 92 28 95 08/26/17 21:00 106/71 (83) 08/26/17 19:00 98.7 Room Air Impression: Primary Impression: Intractable nausea and vomiting Additional Impression: Type 1 diabetes mellitus Condition: Improved Disposition: Admitted from ER Referrals: ANNE GARCIA DO (PCP) Problem Qualifiers Primary Impression: Intractable nausea and vomiting Vomiting type: unspecified Qualified Codes: R11.2 - Nausea with vomiting, unspecified Additional Impression: Type 1 diabetes mellitus Diabetes mellitus complication status: without complication Qualified Codes: E10.9 - Type 1 diabetes mellitus without complications CARMEN HARRISON DO Aug 26, 2017 18:50
[2017-08-26] MEDS ORDERED: NS(*) 0.9% 1000 ML BAG 1,000 ML IV ONE (18:57)
[2017-08-26] MEDS ORDERED: fentaNYL CITR 100 MCG/2 ML AMP IVP ONE (19:00)
[2017-08-26] MEDS ORDERED: PROMETHAZINE 25 MG/ML 1 ML AMP IVP ONE (19:00)
[2017-08-26] MEDS ORDERED: ONDANSETRON 4 MG/2 ML VIAL IVP ONE (19:00)
[2017-08-26] MEDS ORDERED: IOPAMIDOL 76% 75 ML INFUS BTL 75 ML ONE (19:08)
[2017-08-26 19:17] LABS: PLATELET COUNT, AUTOMATED 238 K/uL (150-450)
--- NOTE | 2017-08-26 20:33 | RADIOLOGY IMAGING REPORT ---
FACILITY: [facility] PATIENT NAME: Zeny Guerrero : 1995 MR: [id number] V: [id number] EXAM DATE: ORDERING PHYSICIAN: CARMEN HARRISON TECHNOLOGIST: Location: [facility] Patient: Zeny Guerrero : 1995 Visit/Account:[id number] Date of Sevice: 08/26/2017 CT of the abdomen and pelvis with contrast: Indication: Upper abdominal pain and vomiting. Technique: Helical CT was performed through the abdomen and pelvis following IV contrast enhancement with 75 cc of Isovue-370. Multiplanar reconstructions are reviewed. One of the following dose optimization techniques was utilized in the performance of this exam: Autom ated exposure control; adjustment of the mA and/or kV according to the patient's size; or use of an i terative reconstruction technique. Specific details can be referenced in the facility's radiology C T exam operational policy. Comparison: 05/04/2016 Lower lung cottrell: No focal parenchymal or pleural abnormality is identified. Liver: Normal in size, shape, and density. There is uniform enhancement of the venous structures. Gallbladder/biliary tree: The gallbladder is normal in size and homogeneous in density. The bile duct s are normal in caliber. Pancreas: Normal in size, shape, and density. There are no signs of acute inflammation or fluid. Spleen: Normal in size, shape, and density. Adrenal glands: Within normal limits. Kidneys/urinary bladder: The kidneys are normal in size, shape, and density. There are no signs of ob struction. The urinary bladder is unremarkable, as visualized. Intestinal structures: There is a moderate amount of stool in the colon. There are no signs of obstru ction or focal inflammatory changes. The appendix is unremarkable, as visualized. Pelvis: The uterus and adnexal structures are unremarkable, as visualized. Aorta and vascular structures: Within normal limits. Ascites or fluid collections: There is trace free fluid in the cul-de-sac. No circumscribed fluid col lection is identified. Skeletal structures: Intact and unremarkable. Impression: No acute process is identified in the abdomen or pelvis. Report Dictated By: Aquiles Lundberg MD at 08/26/2017 8:20 PM Report E-Signed By: Aquiles Lundberg MD at 08/26/2017 8:29 PM WSN:[id number]
[2017-08-26 21:34] VITALS: BP 116/80
[2017-08-26] MEDS ORDERED: NS(*) 0.9% 1000 ML BAG 1,000 ML ONE (22:09)
[2017-08-26] MEDS: NS(*) 0.9% 1000 ML BAG 1,000 ML IV PRN (22:12)
--- NOTE | 2017-08-26 22:50 | History & Physical ---
History of Present Illness History of Present Illness 22yo female with chronic intermittent nausea and T1DM who came back to the ER for nausea and vomiting. She was in her usual state of health until 3 days ago when she developed nausea and vomiting. She went to the ER 2 days ago because she was noticing lower blood sugars. She was hydrated and given scrips for Phenergan and Zofran and sent home. Last night, she was back in the ER for the same symptoms. She was hydrated and sent home with scripts for Scopolamine patches and Reglan. Today, she continued to have the nausea and vomiting. Her stomach hurts from the all the vomiting and dry heaving. She denies f/c/ diarrhea/sick contacts. She has had problems with intermittent nausea, but it usually resolves after vomiting. She denies any new chronic prescription medications. History Problems: (1) Type 1 diabetes mellitus Status: Chronic Home Meds Active Scripts Scopolamine (Scopolamine) 1 Mg/3 Day Patch.td.3, 1 PATCH.72H TOP Q3D Y for NAUSEA/VOMITING, #10 Prov:RUBIA HARRISONIke Gaona DO 08/26/17 Promethazine Hcl (PROMETHAZINE HCL) 25 Mg Tablet, 25 MG PO Q4H Y for NAUSEA/ VOMITING, #20 TAB Prov:CARMEN HARRISON DO 08/24/17 Ondansetron (ZOFRAN ODT) 4 Mg Tab.rapdis, 4 MG PO every 6 hours Y for NAUSEA/ VOMITING, #15 TAB TAKE 1 TABLET BY MOUTH EVERY 12 HOURS Prov:CARMEN HARRISON DO 08/24/17 Reported Medications Citalopram Hydrobromide (CITALOPRAM HBR) 20 Mg Tablet, PO QDAY, #5 TAB 08/24/17 Levonorgestrel-Eth Estradiol (LEVORA-28) 1 Each Tablet, 1 EACH PO DAILY 05/04/16 Insulin Pump Syringe, 3 Ml (Insulin Pump [place]) 1 Each Each, 1 EACH MC, 0 Refills 06/01/11 Discontinued Scripts Metoclopramide Hcl (REGLAN) 10 Mg Tablet, 10 MG PO ACHS Y for NAUSEA/VOMITING, # 30 Prov:CARMEN HARRISON DO 08/26/17 Ondansetron (ZOFRAN ODT) 4 Mg Tab.rapdis, 4 MG PO Q6H Y for NAUSEA/VOMITING, # 20 TAB.AVIVA 0 Refills Prov:CLARISSA GEIGER MD 06/16/17 Sulfamethoxazole/Trimet 800-160 Mg Tab (BACTRIM DS TABLET) 1 Each Tablet, 1 TAB PO Q12H, #10 TAB 0 Refills Prov:CLARISSA GEIGER MD 06/16/17 Allergies: Coded Allergies: No Known Drug Allergies (Verified , 08/25/17) Other Social/Family Hx . Student at . Hx Smoking: No Exposure to Second Hand Smoke?: No Hx Alcohol Use: No Hx Substance Use Disorder: No Social Drug Use: Never Review of Systems All Systems Reviewed/Normal: Yes, Except as Noted Exam Vital Signs Vital Signs Date Time Temp Pulse Resp B/P (MAP) Pulse Ox O2 Delivery O2 Flow Rate FiO2 08/26/17 21:41 95 08/26/17 21:41 Room Air 08/26/17 21:34 98.5 94 16 116/80 (92) General Appearance: Other (She appears sleepy and pale. Breathing comfortably. ) Neuro: No Gross deficits Eyes: PERRLA ENT: Moist Mucous Membranes Cardiovascular: Regular Rate and Rhythm Respiratory: Clear to Auscultation GI: Other (Soft, non-distended. mild pain with palpation across mid abdomen) Extremities: No Edema Integumentary: No Jaundice, No Cyanosis Medical Decision Making Data Points Result Diagram: 08/26/17190808/26/171908 Item Value Date Time Neutrophils (%) (Auto) 54.1 % 08/26/171908 Lymphocytes (%) (Auto) 25.6 % 08/26/171908 Monocytes (%) (Auto) 18.3 % H 08/26/171908 Total Bilirubin 0.5 mg/dl 08/26/171908 Aspartate Amino Transf (AST/SGOT) 15 U/L 08/26/171908 Alanine Aminotransferase (ALT/SGPT) 26 U/L 08/26/171908 Alkaline Phosphatase 68 U/L 08/26/171908 Total Protein 6.3 gm/dl 08/26/171908 Albumin 3.2 g/dl L 08/26/171908 Amylase Level 53 U/L 08/26/171908 Lipase 30 U/L 08/26/171908 Urine RBC <1 /HPF 08/25/172116 Urine WBC 1 /HPF 08/25/172116 Urine Squamous Epithelial Cells Many /LPF H 08/25/172116 Urine Renal Epithelial Cells Few /LPF 08/25/172116 Urine Bacteria Negative /HPF 08/25/172116 Urine Mucus Few /HPF 08/25/172116 Urine RBC None /HPF 08/24/17118 Urine WBC 2 /HPF 08/24/17118 Urine Squamous Epithelial Cells Many /LPF H 08/24/17118 Urine Bacteria Negative /HPF 08/24/17118 Urine Mucus Few /HPF 08/24/17118 Urine HCG, Qualitative Negative 08/25/172116 Urine HCG, Qualitative Negative 08/24/17118 EKG / Imaging Imaging CT of the abd/pelvis - No acute process is identified in the abdomen or pelvis. Assessment and Plan Problems: (1) Intractable nausea and vomiting Status: Acute Assessment & Plan: The etiology is unclear. She presents with 3 days of symptoms that has improved with outpatient management and 2 visits to the ER. Will admit, hydrate and give Phenergan prn. Will not use Zofran because of the QT prolonging affects with Citalopram. She has been admitted previously for similar symptoms. She had a gastric emptying study about a year ago that was normal. I have advised her to follow up with a GI specialist as an outpatient. (2) Type 1 diabetes mellitus Status: Chronic Assessment & Plan: No evidence of DKA. Glucose stable. Will check glucose AC , HS and prn per her request. She is to continue using the insulin pump and tell us how much she boluses and if she makes any changes in her basal rate. Copies to: ANNE GARCIA DO Venous Thromboembolism Antithrombotics Is Pt On Any Antithrombotics?: No Exam Sepsis Risk: No Definite Risk Problem Qualifiers (1) Intractable nausea and vomiting: Vomiting type: unspecified Qualified Codes: R11.2 - Nausea with vomiting, unspecified (2) Type 1 diabetes mellitus: Diabetes mellitus complication status: without complication Qualified Codes: E10.9 - Type 1 diabetes mellitus without complications HARRIET QUIROS MD Aug 26, 2017 22:50
[2017-08-27] MEDS: PROMETHAZINE 25 MG/ML 1 ML AMP IVP PRN ×3 (02:04→18:20)
[2017-08-27 03:00] VITALS: BP 101/50
[2017-08-27] MEDS ORDERED: ONDANSETRON 4 MG/2 ML VIAL IVP ONE (03:05)
[2017-08-27 06:05] LABS: PLATELET COUNT, AUTOMATED 214 K/uL (150-450)
--- NOTE | 2017-08-27 09:05 | EKG ---
FACILITY: [facility] PATIENT NAME: MEKA SMALLWOOD : [id number] MR: [id number] V: [id number] EXAM DATE: ORDERING PHYSICIAN: HARRIET QUIROS TECHNOLOGIST: GAVIN Test Reason : PROGLONGED QT Blood Pressure : / mmHG Vent. Rate : 096 BPM Atrial Rate : 096 BPM P-R Int : 114 ms QRS Dur : 090 ms QT Int : 338 ms P-R-T Axes : 053 074 017 degrees QTc Int : 427 ms Normal sinus rhythm Normal ECG No previous ECGs available Confirmed by YAYA ARIZA ([id number]) on 08/27/2017 12:01:26 PM Referred By: ISHAAN Confirmed By:YAYA ARIZA
[2017-08-27] MEDS: CITALOPRAM HYDROBROM 20 MG TAB PO SCH (09:27)
[2017-08-27 09:50] VITALS: BP 105/69
[2017-08-27] MEDS ORDERED: INFLUENZA VIRUS VAC 0.5 ML SYR IM ONLY ONE (10:00)
--- NOTE | 2017-08-27 10:09 | Hospitalist Progress Note ---
Subjective Progress Notes Subjective Feeling much better today. Had clear liquid breakfast without difficulty. Abdominal pain is much improved. Physical Exam Vital Signs Date Time Temp Pulse Resp B/P (MAP) Pulse Ox O2 Delivery O2 Flow Rate FiO2 08/27/17 09:50 99.0 99 16 105/69 (81) 92 Room Air 08/27/17 03:00 1.0 General Appearance: Alert, Awake, No Acute Distress Neuro: No Gross deficits Eyes: PERRLA Cardiovascular: Regular Rate and Rhythm Respiratory: Clear to Auscultation GI: Other (Soft, sligthly tender to palpation in midepigatrium without mass or rebound.) Psych: Appropriate Mood & Affect Result Diagram: 08/27/1751408/27/17514 Assessment and Plan Problems: (1) Intractable nausea and vomiting Status: Acute Assessment & Plan: The etiology is unclear. She presents with 3 days of symptoms that have not improved with outpatient management and 2 visits to the ER. Will admit, hydrate and give Phenergan prn. She is on Citalopram. She received Zofran at 0300 and her QT is normal this am. She has been admitted previously for similar symptoms. She had a gastric emptying study about a year ago that was normal. I have advised her to follow up with a GI specialist as an outpatient. (2) Type 1 diabetes mellitus Status: Chronic Assessment & Plan: No evidence of DKA. Glucose stable. Will check glucose AC , HS and prn per her request. She is to continue using the insulin pump and tell us how much she boluses and if she makes any changes in her basal rate. Time Spent on Plan of Care: < 30 min Exam Sepsis Risk: No Definite Risk Problem Qualifiers (1) Intractable nausea and vomiting: Vomiting type: unspecified Qualified Codes: R11.2 - Nausea with vomiting, unspecified (2) Type 1 diabetes mellitus: Diabetes mellitus complication status: without complication Qualified Codes: E10.9 - Type 1 diabetes mellitus without complications YAYA VILLALTA MD Aug 27, 2017 10:09
[2017-08-27] MEDS: NS(*) 0.9% 1000 ML BAG 1,000 ML IV PRN (11:50)
[2017-08-27] MEDS ORDERED: MAGNESIUM HYDROXIDE* 30ML UDCP PO PRN (12:40)
[2017-08-27] MEDS ORDERED: BISACODYL 10 MG SUPP PR PRN (12:40)
[2017-08-27] MEDS ORDERED: POLYETHYLENE GLYCOL 17 GM PKT PO PRN (12:40)
[2017-08-27] MEDS ORDERED: HYOSCYAMINE SULF*0.125 MG SUBL SL PRN (12:40)
[2017-08-27] MEDS: MORPHINE 2 MG/ML SYR IVP PRN ×2 (13:02→18:02)
[2017-08-27 14:44] VITALS: BP 123/77
[2017-08-27 17:30] VITALS: BP 114/70
[2017-08-27] MEDS ORDERED: diphenhydrAMINE 50 MG/ML VIAL IVP ONE (17:45)
[2017-08-27] MEDS ORDERED: NS(*) 0.9% 1000 ML BAG 1,000 ML IV PRN (18:00)
[2017-08-27 19:42] VITALS: BP 113/67
[2017-08-27] MEDS ORDERED: ACETAMINOPHEN(*)1000 MG/100 ML 100 ML IVPB PRN (20:05)
[2017-08-27] MEDS: DOCUSATE SODIUM 100 MG CAP PO SCH (20:25)
[2017-08-28 02:21] VITALS: BP 94/56
[2017-08-28 07:24] VITALS: BP 107/71
[2017-08-28] MEDS ORDERED: KETOROLAC 30 MG/ML VIAL IVP ONE (07:25)
[2017-08-28] MEDS: CITALOPRAM HYDROBROM 20 MG TAB PO SCH (07:31)
[2017-08-28] MEDS: DOCUSATE SODIUM 100 MG CAP PO SCH (07:31)
[2017-08-28] MEDS ORDERED: KETOROLAC 30 MG/ML VIAL ONE (07:32)
[2017-08-28] MEDS ORDERED: FAMOTIDINE 20 MG TAB PO ONE (09:25)
[2017-08-28] MEDS ORDERED: FAMO-67 PO (09:30)
--- NOTE | 2017-08-28 09:43 | Hospitalist Depart ---
Discharge Summary Reason for Hosp/Final Diag: (1) Intractable nausea and vomiting Status: Resolved Hospital Course & Plan: The etiology is unclear. She presented with 3 days of symptoms that had not improved with outpatient management and 3 visits to the ER. She was not in DKA. She was given gentle hydration and prn Phenergan and Zofran. She is on Citalopram and received Zofran and her QT was normal. She has been admitted previously for similar symptoms. She had a gastric emptying study about a year ago that was normal. She is doing better this morning and now just has her baseline nausea. She has tolerated some oral intake. She would like to go home. We have advised her to follow up with a GI specialist as an outpatient. (2) Type 1 diabetes mellitus Status: Chronic Hospital Course & Plan: No evidence of DKA. Glucose stable during her stay. Continue insulin pump use Departure Weight (Pounds): 138 Result Diagram: 08/27/17 0515 08/27/17514 Item Value Date Time Amylase Level 53 U/L 08/26/171908 Lipase 30 U/L 08/26/171908 Item Value Date Time Carbon Dioxide Level 21 mmol/L L 08/26/17 190 Carbon Dioxide Level 20 mmol/L L 08/27/17 0515 Sodium Level 136 mmol/L L 08/26/17 190 Potassium Level 4.0 mmol/L 08/26/17 190 Chloride Level 108 mmol/L H 08/26/171908 Blood Urea Nitrogen 3 mg/dl L 08/26/17 190 Creatinine 0.80 mg/dl 08/26/171908 Glomerular Filtration Rate Calc > 60.0 08/26/17 190 Whole Blood Glucose 69 mg/DL L 08/27/17 0258 Random Glucose 148 mg/dl H 08/26/17 1909 Calcium Level 7.9 mg/dl L 08/26/17 190 Total Bilirubin 0.5 mg/dl 08/26/171908 Aspartate Amino Transf (AST/SGOT) 15 U/L 08/26/17 190 Alanine Aminotransferase (ALT/SGPT) 26 U/L 08/26/171908 Alkaline Phosphatase 68 U/L 08/26/17 190 Total Protein 6.3 gm/dl 08/26/17 190 Albumin 3.2 g/dl L 08/26/171908 Blood Urea Nitrogen 3 mg/dl L 08/27/17 0515 Creatinine 0.80 mg/dl 08/27/17514 Chloride Level 108 mmol/L H 08/27/17 0515 Potassium Level 4.0 mmol/L 08/27/17 0515 Sodium Level 137 mmol/L 08/27/17 05 Random Glucose 92 mg/dl 08/27/17514 White Blood Count 5.9 k/uL 08/26/171908 Hemoglobin 13.9 g/dL 08/26/171908 Hemoglobin 13.0 g/dL 08/27/17514 White Blood Count 6.0 k/uL 08/27/17514 Platelet Count 214 K/uL 08/27/1715 Platelet Count 238 K/uL 08/26/171908 Neutrophils (%) (Auto) 54.1 % 08/26/171908 Neutrophils (%) (Auto) 55.9 % 08/27/17514 Lymphocytes (%) (Auto) 22.6 % 08/27/17514 Lymphocytes (%) (Auto) 25.6 % 08/26/171908 Imaging 08/26/17 Abd/Pelvis CT - Impression: No acute process is identified in the abdomen or pelvis. EKG Vent. Rate : 096 BPM Atrial Rate : 096 BPM P-R Int : 114 ms QRS Dur : 090 ms QT Int : 338 ms P-R-T Axes : 053 074 017 degrees QTc Int : 427 ms Normal sinus rhythm Normal ECG No previous ECGs available Confirmed by YAYA ARIZA ([id number]) on 08/27/2017 12:01:26 PM Condition: Improved Discharge: Home Discharge Instructions Home Meds Active Scripts Promethazine Hcl (PROMETHAZINE HCL) 25 Mg Tablet, 25 MG PO Q4H Y for NAUSEA/ VOMITING, #20 TAB Prov:CARMEN HARRISON Jimenez DO 08/24/17 Ondansetron (ZOFRAN ODT) 4 Mg Tab.rapdis, 4 MG PO every 6 hours Y for NAUSEA/ VOMITING, #15 TAB TAKE 1 TABLET BY MOUTH EVERY 12 HOURS Prov:CARMEN HARRISON Jimenez DO 08/24/17 Reported Medications Famotidine (FAMOTIDINE) 20 Mg Tablet, 20 MG PO BID Y for use of ibuprofen or naprosyn, TAB 08/28/17 Citalopram Hydrobromide (CITALOPRAM HBR) 20 Mg Tablet, PO QDAY, #5 TAB 08/24/17 Levonorgestrel-Eth Estradiol (LEVORA-28) 1 Each Tablet, 1 EACH PO DAILY 05/04/16 Insulin Pump Syringe, 3 Ml (Insulin Pump [place]) 1 Each Each, 1 EACH MC, 0 Refills 06/01/11 Discontinued Scripts Scopolamine (Scopolamine) 1 Mg/3 Day Patch.td.3, 1 PATCH.72H TOP Q3D Y for NAUSEA/VOMITING, #10 Prov:CARMEN HARRISON DO 08/26/17 Metoclopramide Hcl (REGLAN) 10 Mg Tablet, 10 MG PO ACHS Y for NAUSEA/VOMITING, # 30 Prov:CARMEN HARRISON DO 08/26/17 Ondansetron (ZOFRAN ODT) 4 Mg Tab.rapdis, 4 MG PO Q6H Y for NAUSEA/VOMITING, # 20 TAB.AVIVA 0 Refills Prov:CLARISSA GEIGER MD 06/16/17 Sulfamethoxazole/Trimet 800-160 Mg Tab (BACTRIM DS TABLET) 1 Each Tablet, 1 TAB PO Q12H, #10 TAB 0 Refills Prov:CLARISSA GEIGER MD 06/16/17 Diet: Diabetic Activity: As Tolerated Special Instructions: Follow up with your Data Technical Lead and PCP as scheduled. Bring a copy of the Discharge Summary, labs, and radiologic reports from this admission to the appoinment. Consult with your Data Technical Lead about seeing a Social Security Specialist that would have experience with diabetics. Go to the ER for fevers, worsening abdominal pain or worsening nausea. Copies to: ANNE GARCIA DO Venous Thromboembolism Antithrombotics Is Pt On Any Antithrombotics?: No Problem Qualifiers (1) Intractable nausea and vomiting: Vomiting type: unspecified Qualified Codes: R11.2 - Nausea with vomiting, unspecified (2) Type 1 diabetes mellitus: Diabetes mellitus complication status: without complication Qualified Codes: E10.9 - Type 1 diabetes mellitus without complications HARRIET QUIROS MD Aug 28, 2017 09:43
== END 2017-08-28 09:41 | disposition home or self-care (01) ==
LOC: ER 19:03 → MED 21:11
PROVIDERS: ADMIT Internal Medicine; ATTEND Internal Medicine
DX: E10.9 Type 1 diabetes mellitus without complications (principal); R11.2 Nausea with vomiting, unspecified
CPT/HCPCS: 36415; 36416; 74177; 82150; 82948; 83690; 85025; 93005; 96361; 96374; 96375; 99284; G0378; J0131; J1200; J1885; J2270; J2405; J2550; J3010; J7030; Q9967; 82040; 82247; 82310; 82374; 82435; 82565; 82947; 84075; 84132; 84155; 84295; 84450; 84460; 84520

== ENCOUNTER 2017-09-19 11:24 | Emergency (ER) | payer OTHER ==
[2016-11-21 11:04] VITALS: Wt 63.5 kg
[~2017-09-19 11:24] MED LIST changes: +FAMO-67 PO
--- NOTE | 2017-09-19 11:35 | ER Report ---
History and Physical Time Seen By MD: 11:35 Hx. of Stated Complaint: Pt throwing up since 08:00 with hx of type I diabetes. Pt's last sugar was 215. HPI/ROS CHIEF COMPLAINT: Vomiting HISTORY OF PRESENT ILLNESS: This is a 22-year-old female who presents to the emergency department for nausea and vomiting. Patient states that she felt a little nauseous last night and then today at around 8:00 she began vomiting, patient is a type I diabetic became concerned that she wasn't able to control the vomiting or blood sugars at home and decided to come in for further evaluation. Patient states that she has a long-standing history of nausea and vomiting since about age [age]. Patient also states that her emesis today was dark coffee grounds colored as well as some bright red blood. Patient states about 2-3 weeks ago she was in [facility] seeing her explosive ordnance specialist and GI specialist where they did and endoscopy, which was negative. Patient states she has been working with her primary care physician as well Dr. Garcia to try to get the cyclical vomiting under control. Patient denies any recent illnesses, aches or chills, no diarrhea. Patient denies dysuria, chest pain or shortness of breath. REVIEW OF SYSTEMS: Constitutional: No fever, no chills. Eyes: No discharge. ENT: No sore throat. Cardiovascular: No chest pain, no palpitations. Respiratory: No cough, no shortness of breath. Gastrointestinal: As above. Genitourinary: No hematuria. Musculoskeletal: No back pain. Skin: No rashes. Neurological: No headache. Allergies: Coded Allergies: No Known Drug Allergies (Verified , 09/19/17) Home Meds Active Scripts Promethazine Hcl (PROMETHAZINE HCL) 25 Mg Tablet, 25 MG PO Q8H, #21 TAB 0 Refills Prov:LINDA KIMBALL DROSOPHERE OPERATOR- 09/19/17 Promethazine Hcl (PROMETHAZINE HCL) 25 Mg Tablet, 25 MG PO Q4H Y for NAUSEA/ VOMITING, #20 TAB Prov:CARMEN HARRISON DO 08/24/17 Ondansetron (ZOFRAN ODT) 4 Mg Tab.rapdis, 4 MG PO every 6 hours Y for NAUSEA/ VOMITING, #15 TAB TAKE 1 TABLET BY MOUTH EVERY 12 HOURS Prov:CARMEN HARRISON DO 08/24/17 Reported Medications Citalopram Hydrobromide (CITALOPRAM HBR) 20 Mg Tablet, PO QDAY, #5 TAB 08/24/17 Levonorgestrel-Eth Estradiol (LEVORA-28) 1 Each Tablet, 1 EACH PO DAILY 05/04/16 Insulin Pump Syringe, 3 Ml (Insulin Pump [place]) 1 Each Each, 1 EACH MC, 0 Refills 06/01/11 Discontinued Reported Medications Famotidine (FAMOTIDINE) 20 Mg Tablet, 20 MG PO BID Y for use of ibuprofen or naprosyn, TAB 08/28/17 Past Medical/Surgical History She has a past medical and surgical history of type I diabetes, is his insulin pump, cyclical nausea and vomiting, possible gastroparesis, coffee grounds emesis multiple time, endoscopy, colonoscopy. Hx Smoking: No Exposure to Second Hand Smoke?: No Hx Substance Use Disorder: No Hx Alcohol Use: No Constitutional Vital Sign - Last 24 Hours 09/19/17 09/19/17 09/19/17 09/19/17 11:29 11:32 11:39 11:54 Temp 97.7 Pulse 98 94 87 Resp 16 B/P (MAP) 131/55 131/55 (80) Pulse Ox 92 96 97 O2 Delivery Room Air 09/19/17 09/19/17 09/19/17 09/19/17 12:00 12:09 12:24 12:54 Pulse 85 84 81 B/P (MAP) 114/81 (92) Pulse Ox 100 97 96 09/19/17 09/19/17 09/19/17 13:00 13:15 13:30 Pulse 79 86 B/P (MAP) 114/68 (83) 106/78 (87) Pulse Ox 96 94 Physical Exam General Appearance: The patient is alert, has no immediate need for airway protection and no signs of toxicity. Eyes: Pupils equal and round no pallor or injection. ENT, Mouth: Mucous membranes are moist. Respiratory: There are no retractions, lungs are clear to auscultation. Cardiovascular: Regular rate and rhythm, no murmurs, clicks or rubs. Gastrointestinal: Pain to the epigastrium with palpation, normoactive bowel sounds. Neurological: Alert and oriented 4. Moving all cherries. Following all commands. No focal neuro deficits. Skin: Warm and dry, no rashes. Musculoskeletal: Neck is supple non tender. Extremities are nontender, nonswollen and have full range of motion. DIFFERENTIAL DIAGNOSIS: After history and physical exam differential diagnosis was considered for cyclical vomiting, bowel obstruction, , gastroparesis and GI bleed. Medical Decision Making Data Points Result Diagram: 09/19/17 1130 09/19/17 1130 Laboratory Hematology Test 09/19/17 11:28 09/19/17 11:30 09/19/17 13:06 Urine Color Yellow Urine Clarity Slightly-cloudy Urine pH 5.0 pH (4.8-9.5) Urine Specific [place] 1.025 Urine Protein Negative mg/dL (NEGATIVE) Urine Glucose (UA) 500 mg/dL (NEGATIVE) Urine Ketones 80 mg/dL (NEGATIVE) Urine Blood Negative (NEGATIVE) Urine Nitrite Negative (NEGATIVE) Urine Bilirubin Negative (NEGATIVE) Urine Urobilinogen Negative mg/dL (0.2-1.9) Urine Leukocyte Esterase Negative (NEGATIVE) Urine RBC 4 /HPF (0-2/HPF) Urine WBC 2 /HPF (0-5/HPF) Urine Squamous Epithelial Cells Many /LPF (</=FEW) Urine Bacteria Negative /HPF (NONE-FEW) Urine Hyaline Casts Few /LPF (NONE-FEW) Urine Mucus Few /HPF (NONE-FEW) Urine HCG, Qualitative Negative (NEGATIVE) Red Blood Count 5.16 M/uL (4.17-5.56) Mean Corpuscular Volume 90.4 fL (80.0-96.0) Mean Corpuscular Hemoglobin 31.0 pg (26.0-33.0) Mean Corpuscular Hemoglobin Concent 34.3 g/dL (32.0-36.0) Red Cell Distribution Width 12.5 % (11.5-14.5) Mean Platelet Volume 8.6 fL (7.2-11.1) Neutrophils (%) (Auto) 84.6 % (39.4-72.5) Lymphocytes (%) (Auto) 7.7 % (17.6-49.6) Monocytes (%) (Auto) 7.0 % (4.1-12.4) Eosinophils (%) (Auto) 0.4 % (0.4-6.7) Basophils (%) (Auto) 0.3 % (0.3-1.4) Nucleated RBC Relative Count (auto) 0.0 /100WBC Neutrophils # (Auto) 10.3 K/uL (2.0-7.4) Lymphocytes # (Auto) 0.9 K/uL (1.3-3.6) Monocytes # (Auto) 0.9 K/uL (0.3-1.0) Eosinophils # (Auto) 0.0 K/uL (0.0-0.5) Basophils # (Auto) 0.0 K/uL (0.0-0.1) Nucleated RBC Absolute Count (auto) 0.00 K/uL Sodium Level 138 mmol/L (137-145) Potassium Level 4.1 mmol/L (3.5-5.0) Chloride Level 104 mmol/L (98-107) Carbon Dioxide Level 18 mmol/L (22-31) Blood Urea Nitrogen 14 mg/dl (7-18) Creatinine 0.80 mg/dl (0.52-1.04) Glomerular Filtration Rate Calc > 60.0 Random Glucose 243 mg/dl (75-110) Calcium Level 9.3 mg/dl (8.4-10.2) Total Bilirubin 0.6 mg/dl (0.2-1.3) Aspartate Amino Transf (AST/SGOT) 22 U/L (0-35) Alanine Aminotransferase (ALT/SGPT) 29 U/L (0-56) Alkaline Phosphatase 87 U/L (0-126) Total Protein 8.0 gm/dl (6.3-8.2) Albumin 4.3 g/dl (3.5-5.0) Lipase 103 U/L (23-300) Whole Blood Glucose 155 mg/DL (75-110) Chemistry Test 09/19/17 11:28 09/19/17 11:30 09/19/17 13:06 Urine Color Yellow Urine Clarity Slightly-cloudy Urine pH 5.0 pH (4.8-9.5) Urine Specific [place] 1.025 Urine Protein Negative mg/dL (NEGATIVE) Urine Glucose (UA) 500 mg/dL (NEGATIVE) Urine Ketones 80 mg/dL (NEGATIVE) Urine Blood Negative (NEGATIVE) Urine Nitrite Negative (NEGATIVE) Urine Bilirubin Negative (NEGATIVE) Urine Urobilinogen Negative mg/dL (0.2-1.9) Urine Leukocyte Esterase Negative (NEGATIVE) Urine RBC 4 /HPF (0-2/HPF) Urine WBC 2 /HPF (0-5/HPF) Urine Squamous Epithelial Cells Many /LPF (</=FEW) Urine Bacteria Negative /HPF (NONE-FEW) Urine Hyaline Casts Few /LPF (NONE-FEW) Urine Mucus Few /HPF (NONE-FEW) Urine HCG, Qualitative Negative (NEGATIVE) White Blood Count 12.2 k/uL (4.5-11.0) Red Blood Count 5.16 M/uL (4.17-5.56) Hemoglobin 16.0 g/dL (12.0-16.0) Hematocrit 46.6 % (34.0-47.0) Mean Corpuscular Volume 90.4 fL (80.0-96.0) Mean Corpuscular Hemoglobin 31.0 pg (26.0-33.0) Mean Corpuscular Hemoglobin Concent 34.3 g/dL (32.0-36.0) Red Cell Distribution Width 12.5 % (11.5-14.5) Platelet Count 362 K/uL (150-450) Mean Platelet Volume 8.6 fL (7.2-11.1) Neutrophils (%) (Auto) 84.6 % (39.4-72.5) Lymphocytes (%) (Auto) 7.7 % (17.6-49.6) Monocytes (%) (Auto) 7.0 % (4.1-12.4) Eosinophils (%) (Auto) 0.4 % (0.4-6.7) Basophils (%) (Auto) 0.3 % (0.3-1.4) Nucleated RBC Relative Count (auto) 0.0 /100WBC Neutrophils # (Auto) 10.3 K/uL (2.0-7.4) Lymphocytes # (Auto) 0.9 K/uL (1.3-3.6) Monocytes # (Auto) 0.9 K/uL (0.3-1.0) Eosinophils # (Auto) 0.0 K/uL (0.0-0.5) Basophils # (Auto) 0.0 K/uL (0.0-0.1) Nucleated RBC Absolute Count (auto) 0.00 K/uL Glomerular Filtration Rate Calc > 60.0 Calcium Level 9.3 mg/dl (8.4-10.2) Total Bilirubin 0.6 mg/dl (0.2-1.3) Aspartate Amino Transf (AST/SGOT) 22 U/L (0-35) Alanine Aminotransferase (ALT/SGPT) 29 U/L (0-56) Alkaline Phosphatase 87 U/L (0-126) Total Protein 8.0 gm/dl (6.3-8.2) Albumin 4.3 g/dl (3.5-5.0) Lipase 103 U/L (23-300) Whole Blood Glucose 155 mg/DL (75-110) Urinalysis Test 09/19/17 11:28 Urine Color Yellow Urine Clarity Slightly-cloudy Urine pH 5.0 pH (4.8-9.5) Urine Specific [place] 1.025 Urine Protein Negative mg/dL (NEGATIVE) Urine Glucose (UA) 500 mg/dL (NEGATIVE) Urine Ketones 80 mg/dL (NEGATIVE) Urine Blood Negative (NEGATIVE) Urine Nitrite Negative (NEGATIVE) Urine Bilirubin Negative (NEGATIVE) Urine Urobilinogen Negative mg/dL (0.2-1.9) Urine Leukocyte Esterase Negative (NEGATIVE) Urine RBC 4 /HPF (0-2/HPF) Urine WBC 2 /HPF (0-5/HPF) Urine Squamous Epithelial Cells Many /LPF (</=FEW) Urine Bacteria Negative /HPF (NONE-FEW) Urine Hyaline Casts Few /LPF (NONE-FEW) Urine Mucus Few /HPF (NONE-FEW) Urine HCG, Qualitative Negative (NEGATIVE) EKG/Imaging Imaging Location: [facility] - [place], [place] Patient: Zeny Guerrero : 1995 Visit/Account:[id number] Date of Sevice: 09/19/2017 Abdominal series, three views. HISTORY: Abdominal pain. COMPARISON: 08/26/2017. Four images were obtained. The heart and mediastinum are unremarkable. Pulmonary vessels are unremarkable. The lungs are clear. The pleural surfaces are unremarkable. No pneumothorax. Moderate amounts of stool and small amounts of gas are scattered in the colon and rectum. Gas is present within several nondilated loops of small bowel. No abnormal calcifications. No free subdiaphragmatic air. No acute bony abnormalities. An electronic device consistent with an insulin pump projects on the right abdomen. IMPRESSION: Moderate colorectal obstipation. Otherwise negative. Report Dictated By: Beau Olea MD at 09/19/2017 12:50 PM Report E-Signed By: Beau Olea MD at 09/19/2017 1:00 PM WSN:[email or web address] ED Course/Re-evaluation Clinical Indication for ER IV: Hydration, IV Access ED Course He patient was admitted to room. A history and physical were obtained. Differential diagnoses were considered. An IV was started. With liter normal saline bolus was given. 4 mg IV Zofran was given. CBC, CMP and UA were obtained. CBC unremarkable, chemistry with a glucose of 243, the patient had adjusted her pump a repeat bedside glucose was 155. Urine showing glucose and ketonuria, otherwise unremarkable. Negative hCG. Three-view abdominal series showing mild to moderate: Obstipation. I did off her Reglan prescription to the patient however she declined she states that she does have Reglan at home and does not want to take it it made her very sleepy. Patient was instructed to follow-up with Dr. Parker for possible repeat endoscopy. A prescription was also some of the patient's pharmacy for Phenergan. Patient does have scopolamine patches, Zofran and Phenergan suppositories at home. Patient was also encouraged to follow-up with student health counseling services as well as Dr. Garcia. Patient was in agreement with this plan of care and discharged home. Patient does state that she feels much better after the saline bolus as well as the Zofran. No vomiting while in the emergency department patient states that she does always have an underlying feeling of nausea. Decision to Disposition Date: Sep 19, 2017 Decision to Disposition Time: 13:21 Depart Departure Latest Vital Signs Vital Signs Date Time Temp Pulse Resp B/P (MAP) Pulse Ox O2 Delivery O2 Flow Rate FiO2 09/19/17 13:30 86 106/78 (87) 94 09/19/17 11:29 97.7 16 Room Air Impression: Primary Impression: Nausea & vomiting Condition: Improved Disposition: HOME OR SELF-CARE Referrals: ANNE GARCIA DO (PCP) TANGELA NORWOOD MD New Scripts Promethazine Hcl (PROMETHAZINE HCL) 25 Mg Tablet 25 MG PO Q8H, #21 TAB 0 Refills Prov: LINDA KIMBALL DROSOPHERE OPERATOR-BC 09/19/17 Patient Instructions: Acute Nausea and Vomiting (ED) Additional Instructions: Drink plenty of fluids. Get plenty of rest. Please follow up with Dr. Norwood for reevaluation and possible endoscopy, as soon as possible. Follow up with student health services as needed. Follow up with Dr. Garcia as scheduled. May return to the ED for any other concerns or worsening symptoms. Problem Qualifiers Primary Impression: Nausea & vomiting Vomiting type: cyclical vomiting Vomiting Intractability: non-intractable Qualified Codes: G43.A0 - Cyclical vomiting, not intractable LINDA KIMBALLP-BC Sep 19, 2017 11:35
[2017-09-19] MEDS ORDERED: ONDANSETRON 4 MG/2 ML VIAL IVP ONE (12:00)
[2017-09-19] MEDS ORDERED: NS(*) 0.9% 1000 ML BAG 1,000 ML IV ONE (12:00)
[2017-09-19] MEDS ORDERED: PANTOPRAZOLE SOD 40 MG IV VIAL IVP ONE (12:05)
[2017-09-19 12:11] LABS: PLATELET COUNT, AUTOMATED 362 K/uL (150-450)
--- NOTE | 2017-09-19 13:04 | RADIOLOGY IMAGING REPORT ---
[place] [facility] [place] Zeny Guerrero : 1995 MR: [id number] V: [id number] EXAM DATE: ORDERING PHYSICIAN: LINDA KIMBALL TECHNOLOGIST: Location: [facility] Patient: Zeny Guerrero : 1995 Visit/Account:[id number] Date of Sevice: 09/19/2017 Abdominal series, three views. HISTORY: Abdominal pain. COMPARISON: 08/26/2017. Four images were obtained. The heart and mediastinum are unremarkable. Pulmonary vessels are unrema rkable. The lungs are clear. The pleural surfaces are unremarkable. No pneumothorax. Moderate amounts of stool and small amounts of gas are scattered in the colon and rectum. Gas is pres ent within several nondilated loops of small bowel. No abnormal calcifications. No free subdiaphragma tic air. No acute bony abnormalities. An electronic device consistent with an insulin pump projects on the right abdomen. IMPRESSION: Moderate colorectal obstipation. Otherwise negative. Report Dictated By: Beau Olea MD at 09/19/2017 12:50 PM Report E-Signed By: Beau Olea MD at 09/19/2017 1:00 PM WSN:[email or web address]
[2017-09-19] MEDS ORDERED: PROM-110 PO (13:17)
[2017-09-19 13:30] VITALS: BP 106/78
== END 2017-09-19 13:46 | disposition home or self-care (01) ==
LOC: ER 11:27
DX: G43.A0 Cyclical vomiting, in migraine, not intractable (principal); K59.00 Constipation, unspecified
CPT/HCPCS: 36416; 74022; 81001; 81025; 82948; 83690; 85025; 99284; C9113; J2405; J7030; 82040; 82247; 82310; 82374; 82435; 82565; 82947; 84075; 84132; 84155; 84295; 84450; 84460; 84520; 96361; 96374; 96375

== ENCOUNTER 2018-04-06 08:55 | Emergency (ER) | payer OTHER ==
[2016-11-21 11:04] VITALS: Wt 65.8 kg
[~2018-04-06 08:55] MED LIST changes: -CITA-139 PO; +CITA-145 PO
--- NOTE | 2018-04-06 09:12 | ER Report ---
History and Physical Time Seen By MD: 09:12 Hx. of Stated Complaint: vomiting HPI/ROS Nausea and vomiting for one day. No abdominal pain. No chest pain. No vaginal bleeding. No fever, no vaginal discharge Allergies: Coded Allergies: No Known Drug Allergies (Verified , 04/06/18) Home Meds Active Scripts Promethazine Hcl (PROMETHAZINE HCL) 25 Mg Tablet, 25 MG PO Q8H for 10 Days, #30 TAB Prov:BOBBI CARVAJAL MD 04/06/18 Reported Medications Citalopram Hydrobromide (CITALOPRAM HBR) 20 Mg Tablet, PO QDAY, #5 TAB 08/24/17 Insulin Pump Syringe, 3 Ml (Insulin Pump [place]) 1 Each Each, 1 EACH MC, 0 Refills 06/01/11 Hx Smoking: No Exposure to Second Hand Smoke?: No Hx Substance Use Disorder: No Hx Alcohol Use: No Constitutional Physical Exam GE: A/O x 3 HEENT: PERRL CV: RRR, no m/r/g Lungs: cta b/l Abdomen: soft, NTND Medical Decision Making Data Points Laboratory Hematology Test 04/06/18 00:00 04/06/18 09:00 04/06/18 09:27 04/06/18 09:31 Sodium Level 137 mmol/L (137-145) Potassium Level 3.9 mmol/L (3.5-5.0) Chloride Level 106 mmol/L (98-107) Carbon Dioxide Level 20 mmol/L (22-31) Blood Urea Nitrogen 12 mg/dl (7-18) Creatinine 0.70 mg/dl (0.52-1.04) Glomerular Filtration Rate Calc > 60.0 Random Glucose 275 mg/dl (75-110) Osmolality 295 mOSM/K (275-295) Calcium Level 9.1 mg/dl (8.4-10.2) Total Bilirubin 0.8 mg/dl (0.2-1.3) Aspartate Amino Transf (AST/SGOT) 27 U/L (0-35) Alanine Aminotransferase (ALT/SGPT) 26 U/L (0-56) Alkaline Phosphatase 69 U/L (0-126) Total Protein 7.1 g/dl (6.3-8.2) Albumin 4.0 g/dl (3.5-5.0) Lipase 69 U/L (23-300) Urine Color Yellow Urine Clarity Clear Urine pH 5.0 pH (4.8-9.5) Urine Specific [place] 1.032 Urine Protein Negative mg/dL (NEGATIVE) Urine Glucose (UA) 150 mg/dL (NEGATIVE) Urine Ketones 80 mg/dL (NEGATIVE) Urine Blood Negative (NEGATIVE) Urine Nitrite Negative (NEGATIVE) Urine Bilirubin Negative (NEGATIVE) Urine Urobilinogen Negative mg/dL (0.2-1.9) Urine Leukocyte Esterase Negative (NEGATIVE) Urine RBC <1 /HPF (0-2/HPF) Urine WBC 2 /HPF (0-5/HPF) Urine Squamous Epithelial Cells Many /LPF (</=FEW) Urine Transitional Epithelial Cells Few /LPF (NONE-FEW) Urine Bacteria Few /HPF (NONE-FEW) Urine Hyaline Casts Few /LPF (NONE-FEW) Urine Mucus Few /HPF (NONE-FEW) Urine HCG, Qualitative Negative (NEGATIVE) Whole Blood Glucose 269 mg/DL (75-110) Red Blood Count 4.99 M/uL (4.17-5.56) Mean Corpuscular Volume 89.2 fL (80.0-96.0) Mean Corpuscular Hemoglobin 30.6 pg (26.0-33.0) Mean Corpuscular Hemoglobin Concent 34.3 g/dL (32.0-36.0) Red Cell Distribution Width 12.4 % (11.5-14.5) Mean Platelet Volume 9.0 fL (7.2-11.1) Neutrophils (%) (Auto) 86.6 % (39.4-72.5) Lymphocytes (%) (Auto) 5.4 % (17.6-49.6) Monocytes (%) (Auto) 7.6 % (4.1-12.4) Eosinophils (%) (Auto) 0.3 % (0.4-6.7) Basophils (%) (Auto) 0.1 % (0.3-1.4) Nucleated RBC Relative Count (auto) 0.0 /100WBC Neutrophils # (Auto) 10.4 K/uL (2.0-7.4) Lymphocytes # (Auto) 0.6 K/uL (1.3-3.6) Monocytes # (Auto) 0.9 K/uL (0.3-1.0) Eosinophils # (Auto) 0.0 K/uL (0.0-0.5) Basophils # (Auto) 0.0 K/uL (0.0-0.1) Nucleated RBC Absolute Count (auto) 0.00 K/uL Peripheral Blood Smear No Y/N Chemistry Test 04/06/18 00:00 04/06/18 09:00 04/06/18 09:27 04/06/18 09:31 Glomerular Filtration Rate Calc > 60.0 Osmolality 295 mOSM/K (275-295) Calcium Level 9.1 mg/dl (8.4-10.2) Total Bilirubin 0.8 mg/dl (0.2-1.3) Aspartate Amino Transf (AST/SGOT) 27 U/L (0-35) Alanine Aminotransferase (ALT/SGPT) 26 U/L (0-56) Alkaline Phosphatase 69 U/L (0-126) Total Protein 7.1 g/dl (6.3-8.2) Albumin 4.0 g/dl (3.5-5.0) Lipase 69 U/L (23-300) Urine Color Yellow Urine Clarity Clear Urine pH 5.0 pH (4.8-9.5) Urine Specific [place] 1.032 Urine Protein Negative mg/dL (NEGATIVE) Urine Glucose (UA) 150 mg/dL (NEGATIVE) Urine Ketones 80 mg/dL (NEGATIVE) Urine Blood Negative (NEGATIVE) Urine Nitrite Negative (NEGATIVE) Urine Bilirubin Negative (NEGATIVE) Urine Urobilinogen Negative mg/dL (0.2-1.9) Urine Leukocyte Esterase Negative (NEGATIVE) Urine RBC <1 /HPF (0-2/HPF) Urine WBC 2 /HPF (0-5/HPF) Urine Squamous Epithelial Cells Many /LPF (</=FEW) Urine Transitional Epithelial Cells Few /LPF (NONE-FEW) Urine Bacteria Few /HPF (NONE-FEW) Urine Hyaline Casts Few /LPF (NONE-FEW) Urine Mucus Few /HPF (NONE-FEW) Urine HCG, Qualitative Negative (NEGATIVE) Whole Blood Glucose 269 mg/DL (75-110) White Blood Count 11.9 k/uL (4.5-11.0) Red Blood Count 4.99 M/uL (4.17-5.56) Hemoglobin 15.3 g/dL (12.0-16.0) Hematocrit 44.5 % (34.0-47.0) Mean Corpuscular Volume 89.2 fL (80.0-96.0) Mean Corpuscular Hemoglobin 30.6 pg (26.0-33.0) Mean Corpuscular Hemoglobin Concent 34.3 g/dL (32.0-36.0) Red Cell Distribution Width 12.4 % (11.5-14.5) Platelet Count 267 K/uL (150-450) Mean Platelet Volume 9.0 fL (7.2-11.1) Neutrophils (%) (Auto) 86.6 % (39.4-72.5) Lymphocytes (%) (Auto) 5.4 % (17.6-49.6) Monocytes (%) (Auto) 7.6 % (4.1-12.4) Eosinophils (%) (Auto) 0.3 % (0.4-6.7) Basophils (%) (Auto) 0.1 % (0.3-1.4) Nucleated RBC Relative Count (auto) 0.0 /100WBC Neutrophils # (Auto) 10.4 K/uL (2.0-7.4) Lymphocytes # (Auto) 0.6 K/uL (1.3-3.6) Monocytes # (Auto) 0.9 K/uL (0.3-1.0) Eosinophils # (Auto) 0.0 K/uL (0.0-0.5) Basophils # (Auto) 0.0 K/uL (0.0-0.1) Nucleated RBC Absolute Count (auto) 0.00 K/uL Peripheral Blood Smear No Y/N Urinalysis Test 04/06/18 09:00 Urine Color Yellow Urine Clarity Clear Urine pH 5.0 pH (4.8-9.5) Urine Specific [place] 1.032 Urine Protein Negative mg/dL (NEGATIVE) Urine Glucose (UA) 150 mg/dL (NEGATIVE) Urine Ketones 80 mg/dL (NEGATIVE) Urine Blood Negative (NEGATIVE) Urine Nitrite Negative (NEGATIVE) Urine Bilirubin Negative (NEGATIVE) Urine Urobilinogen Negative mg/dL (0.2-1.9) Urine Leukocyte Esterase Negative (NEGATIVE) Urine RBC <1 /HPF (0-2/HPF) Urine WBC 2 /HPF (0-5/HPF) Urine Squamous Epithelial Cells Many /LPF (</=FEW) Urine Transitional Epithelial Cells Few /LPF (NONE-FEW) Urine Bacteria Few /HPF (NONE-FEW) Urine Hyaline Casts Few /LPF (NONE-FEW) Urine Mucus Few /HPF (NONE-FEW) Urine HCG, Qualitative Negative (NEGATIVE) ED Course/Re-evaluation ED Course Benign abdominal pain. Normal labs. HCG negative. Improved with IV fluids and Z ofran. STrict return precautions given Decision to Disposition Date: Apr 06, 2018 Decision to Disposition Time: 13:28 Depart Departure Latest Vital Signs Impression: Primary Impression: Nausea & vomiting Condition: Improved Disposition: HOME OR SELF-CARE Referrals: ANNE GARCIA DO (PCP) New Scripts Promethazine Hcl (PROMETHAZINE HCL) 25 Mg Tablet 25 MG PO Q8H for 10 Days, #30 TAB Prov: BOBBI CARVAJAL MD 04/06/18 Patient Instructions: Acute Nausea and Vomiting (ED) Problem Qualifiers Primary Impression: Nausea & vomiting Vomiting type: unspecified Vomiting Intractability: unspecified Qualified Codes: R11.2 - Nausea with vomiting, unspecified BOBBI CARVAJAL MD Apr 06, 2018 09:12
[2018-04-06] MEDS ORDERED: ONDANSETRON 4 MG/2 ML VIAL IVP ONE (09:15)
[2018-04-06] MEDS ORDERED: NS(*) 0.9% 1000 ML BAG 1,000 ML IV ONE (09:15)
[2018-04-06] MEDS ORDERED: PROMETHAZINE 25 MG/ML 1 ML AMP IVP ONE (10:40)
[2018-04-06 10:51] LABS: PLATELET COUNT, AUTOMATED 267 K/uL (150-450)
[2018-04-06 13:00] VITALS: BP 100/66
[2018-04-06] MEDS ORDERED: PROM-110 PO (13:29)
== END 2018-04-06 13:37 | disposition home or self-care (01) ==
LOC: ER 09:13
DX: R11.2 Nausea with vomiting, unspecified (principal); R10.9 Unspecified abdominal pain
CPT/HCPCS: 36416; 81001; 81025; 82948; 83690; 83930; 85025; 96374; 96375; 99284; J2405; J2550; J7030; 82040; 82247; 82310; 82374; 82435; 82565; 82947; 84075; 84132; 84155; 84295; 84450; 84460; 84520; 96361

== ENCOUNTER 2019-01-24 08:06 | Emergency (ER) | payer OTHER ==
[2016-11-21 11:04] VITALS: BMI 25.4
[2019-01-24] MEDS ORDERED: NS(*) 0.9% 1000 ML BAG 1,000 ML IV ONE ×2 (08:20→09:30)
[2019-01-24] MEDS ORDERED: PROMETHAZINE 25 MG/ML 1 ML AMP IVP ONE (08:20)
--- NOTE | 2019-01-24 08:25 | ER Report ---
History and Physical Time Seen By MD: 08:17 Hx. of Stated Complaint: PATIENT REPORTS VOMITING FOR THE LAST HOUR. HPI/ROS CHIEF COMPLAINT: Vomiting and diarrhea HISTORY OF PRESENT ILLNESS: PT states last night went to bed nauseated. Woke up vomiting and diarrhea at 6am. 2 episodes of diarrhea this am. Unable to stop dryheaving. Pt has hx of cyclic vomiting and feels this is an exacerbation. PT has phenergan suppositories but was unable to use due to the diarrhea. Pt denies abd pain until the vomiting started and now has epigastric pain. no blood in emesis or diarrhea. no fevers. REVIEW OF SYSTEMS: Constitutional: No fever, no chills. Eyes: No discharge. ENT: No sore throat. Cardiovascular: No chest pain, no palpitations. Respiratory: No cough, no shortness of breath. Gastrointestinal: + abdominal pain, + diarrhea, + vomiting. Genitourinary: No hematuria. Musculoskeletal: No back pain. Skin: No rashes. Neurological: No headache. Allergies: Coded Allergies: No Known Drug Allergies (Verified , 04/06/18) Home Meds Active Scripts Promethazine Hcl (PROMETHAZINE HCL) 25 Mg Tablet, 25 MG PO Q8H for 10 Days, #30 TAB Prov:BOBBI CARVAJAL MD 04/06/18 Reported Medications Citalopram Hydrobromide (CITALOPRAM HBR) 20 Mg Tablet, PO QDAY, #5 TAB 08/24/17 Insulin Pump Syringe, 3 Ml (Insulin Pump [place]) 1 Each Each, 1 EACH MC, 0 Refills 06/01/11 Past Medical/Surgical History Pmhx: cyclic vomiting, DM1 Pshx, egd, colonscopy Reviewed Nurses Notes: Yes Hx Smoking: No Exposure to Second Hand Smoke?: No Hx Substance Use Disorder: No Hx Alcohol Use: No Constitutional Vital Sign - Last 24 Hours 01/24/19 01/24/19 01/24/19 01/24/19 08:06 08:07 08:09 08:10 Temp 96.0 Pulse ??? 80 Resp 24 B/P (MAP) 80/70 (73) 123/92 (102) Pulse Ox 100 01/24/19 01/24/19 01/24/19 01/24/19 08:30 08:36 09:00 09:06 Pulse 92 74 B/P (MAP) 116/68 (84) 140/88 (105) Pulse Ox 100 100 01/24/19 01/24/19 01/24/19 01/24/19 09:30 09:36 10:00 10:15 Pulse 87 74 B/P (MAP) 115/80 (92) 102/69 (80) Pulse Ox 94 99 01/24/19 10:30 B/P (MAP) 92/54 (67) Physical Exam General Appearance: The patient is alert, has no immediate need for airway protection and no signs of toxicity. Eyes: Pupils equal and round no pallor or injection, EOMI ENT: no pharyngeal erythema or exudates, Mucous membranes are moist, TM are nl b/l Respiratory: There are no retractions, lungs are clear to auscultation. Cardiovascular: Regular rate and rhythm. pulses are equal and symmetrical Gastrointestinal: Abdomen is soft and non tender, no masses, bowel sounds normal, no guarding, no rigidity or rebound Neurological: Cranial nerves II-XII grossly intact, no sensory or motor loss Skin: Warm and dry, no rashes. Musculoskeletal: Neck is supple non tender, no vertebral tenderness Extremities are nontender, nonswollen and have full range of motion. DIFFERENTIAL DIAGNOSIS: After history and physical exam differential diagnosis was considered for DKA, cyclic vomiting episode, pancreatitis, gastroenteritis Medical Decision Making Data Points Result Diagram: 01/24/19 0843 01/24/19 0843 Laboratory Hematology Test 01/24/19 08:43 White Blood Count 14.8 k/uL (4.5-11.0) H Red Blood Count 5.18 M/uL (4.17-5.56) Hemoglobin 16.0 g/dL (12.0-16.0) Hematocrit 47.1 % (34.0-47.0) H Mean Corpuscular Volume 90.9 fL (80.0-96.0) Mean Corpuscular Hemoglobin 30.8 pg (26.0-33.0) Mean Corpuscular Hemoglobin Concent 33.9 g/dL (32.0-36.0) Red Cell Distribution Width 13.1 % (11.5-14.5) Platelet Count 274 K/uL (150-450) Mean Platelet Volume 8.4 fL (7.2-11.1) Neutrophils (%) (Auto) 87.8 % (39.4-72.5) H Lymphocytes (%) (Auto) 6.5 % (17.6-49.6) L Monocytes (%) (Auto) 5.1 % (4.1-12.4) Eosinophils (%) (Auto) 0.5 % (0.4-6.7) Basophils (%) (Auto) 0.1 % (0.3-1.4) L Nucleated RBC Relative Count (auto) 0.0 /100WBC Neutrophils # (Auto) 13.0 K/uL (2.0-7.4) H Lymphocytes # (Auto) 1.0 K/uL (1.3-3.6) L Monocytes # (Auto) 0.8 K/uL (0.3-1.0) Eosinophils # (Auto) 0.1 K/uL (0.0-0.5) Basophils # (Auto) 0.0 K/uL (0.0-0.1) Nucleated RBC Absolute Count (auto) 0.00 K/uL Chemistry Test 01/24/19 08:43 Sodium Level 139 mmol/L (137-145) Potassium Level 3.8 mmol/L (3.5-5.0) Chloride Level 108 mmol/L (98-107) Carbon Dioxide Level 19 mmol/L (22-31) Blood Urea Nitrogen 12 mg/dl (7-18) Creatinine 0.80 mg/dl (0.52-1.04) Glomerular Filtration Rate Calc > 60.0 Random Glucose 209 mg/dl (75-110) Calcium Level 9.3 mg/dl (8.4-10.2) Total Bilirubin 0.5 mg/dl (0.2-1.3) Aspartate Amino Transf (AST/SGOT) 26 U/L (0-35) Alanine Aminotransferase (ALT/SGPT) 27 U/L (0-56) Alkaline Phosphatase 83 U/L (0-126) Total Protein 7.4 g/dl (6.3-8.2) Albumin 4.2 g/dl (3.5-5.0) Lipase 95 U/L (23-300) Toxicology Test 01/24/19 08:43 Acetone, Qualitative Negative ED Course/Re-evaluation Clinical Indication for ER IV: Hydration, IV Access ED Course check labs 01/24/2019 10:35:37 am Pt feeling much better after the NSS 2 liters and medication. Pt feels she can go home. States she has medication at home (phenergan, reglan and zofran) and does not need any new scripts. Decision to Disposition Date: Jan 24, 2019 Decision to Disposition Time: 10:40 Depart Departure Latest Vital Signs Vital Signs Date Time Temp Pulse Resp B/P (MAP) Pulse Ox O2 Delivery O2 Flow Rate FiO2 01/24/19 10:30 92/54 (67) 01/24/19 10:15 74 99 01/24/19 08:10 96.0 24 Impression: Primary Impression: Cyclic vomiting syndrome Condition: Improved Disposition: HOME OR SELF-CARE Referrals: ANNE GARCIA DO (PCP) 2 Days Departure Forms: ER Transition Record, Medications Reconciliation, Off Work/School Form, School or Work Release?: Work Number of days to be released: 2 Patient Portal Information Patient Instructions: Acute Nausea and Vomiting (GEN) Additional Instructions: Follow up with your family doctor. Return for any concerns. Problem Qualifiers Primary Impression: Cyclic vomiting syndrome Vomiting Intractability: intractable Nausea presence: with nausea Qualified Codes: G43.A1 - Cyclical vomiting, intractable LAURORA,SANDRA V Jan 24, 2019 08:25
[2019-01-24 08:55] LABS: PLATELET COUNT, AUTOMATED 274 K/uL (150-450)
[2019-01-24] MEDS ORDERED: ONDANSETRON 4 MG/2 ML VIAL IVP ONE (09:45)
[2019-01-24 10:30] VITALS: BP 92/54
== END 2019-01-24 10:51 | disposition home or self-care (01) ==
LOC: ER 08:36
DX: G43.A1 Cyclical vomiting, in migraine, intractable (principal)
CPT/HCPCS: 82009; 83690; 85025; 96361; 96374; 96375; 99284; J2405; J2550; J7030; 82040; 82247; 82310; 82374; 82435; 82565; 82947; 84075; 84132; 84155; 84295; 84450; 84460; 84520